=== PATIENT | female | born 1970 | race American Indian/Alaskan Native ===

== ENCOUNTER 2018-04-10 22:10 | Inpatient (IN) | payer MEDICAID, OTHER ==
[2018-04-10 22:31] VITALS: BMI 28.5
[2018-04-10] MEDS ORDERED: Sodium Chloride 0.9% 1,000 ML IV STA (22:38)
--- NOTE | 2018-04-10 22:51 | ED PDOC ---
Arrival/HPI - General Chief Complaint: Abdominal Pain Time Seen by Provider: 04/10/18 22:11 Historian: Patient - Critical Care Critical Care Minutes: 30 minutes - History of Present Illness Narrative History of Present Illness (Text): 04/10/18 22:35 48 year old female, whose past medical history includes substance abuse, diabetes, hepatitis C, presents to the emergency department complaining of abdominal cramps associated with nausea, vomiting, and diarrhea for the past couple of days. Patient denies any fever, chills, chest pain, shortness of breath, urinary symptoms, back pain, neck pain, headache, dizziness, or any other complaints. Time/Duration: Other (1-3 days) Symptom Onset: Gradual Symptom Course: Unchanged Activities at Onset: Light Context: Home Past Medical History - Provider Review Nursing Documentation Reviewed: Yes - Infectious Disease Hx of Infectious Diseases: None - Tetanus Immunization Tetanus Immunization: Unknown - Cardiac Hx Cardiac Disorders: No - Pulmonary Hx Respiratory Disorders: No - Neurological Hx Neurological Disorder: No - HEENT Hx HEENT Disorder: No - Renal Hx Renal Disorder: No - Endocrine/Metabolic Hx Endocrine Disorders: Yes Hx Diabetes Mellitus Type 2: Yes - Hematological/Oncological Hx Blood Disorders: No - Integumentary Hx Dermatological Disorder: Yes Other/Comment: left great toe infection - Musculoskeletal/Rheumatological Hx Musculoskeletal Disorders: No - Gastrointestinal Hx Gastrointestinal Disorders: No - Genitourinary/Gynecological Hx Genitourinary Disorders: No - Psychiatric Hx Psychophysiologic Disorder: No Hx Substance Use: Yes - Surgical History Other/Comment: Fibroid removed - Anesthesia Hx Anesthesia: Yes Hx Anesthesia Reactions: No Hx Malignant Hyperthermia: No Family/Social History - Physician Review Nursing Documentation Reviewed: Yes Family/Social History: No Known Family HX Smoking Status: Light Smoker < 10 Cigarettes Daily Hx Alcohol Use: No Hx Substance Use: Yes Substance used: heroin Allergies/Home Meds Allergies/Adverse Reactions: Allergies No Known Allergies Allergy (Verified 04/10/18 22:18) Home Medications: Home Meds Medication Instructions Recorded Confirmed Metformin HCl [Metformin] 1,000 mg PO BID 07/07/15 04/10/18 GlipiZIDE [Glipizide] 10 mg PO DAILY 08/26/16 04/10/18 Insulin Glargine, Recombina 0 unit SC ACHS 08/26/16 04/10/18 [Lantus] Review of Systems - Physician Review All systems were reviewed & negative as marked: Yes - Review of Systems Constitutional: absent: Fevers, Other (Chills) Respiratory: absent: SOB Cardiovascular: absent: Chest Pain Gastrointestinal: Abdominal Pain, Diarrhea, Nausea, Vomiting Genitourinary Female: absent: Dysuria, Frequency, Hematuria Musculoskeletal: absent: Back Pain, Neck Pain Neurological: absent: Headache, Dizziness Physical Exam Vital Signs Reviewed: Yes Vital Signs Temp Pulse Resp BP Pulse Ox 04/11/18 03:30 99.1 F 93 H 20 153/93 H 04/11/18 02:24 90 18 127/77 100 04/11/18 01:58 82 18 114/67 99 04/10/18 23:59 90 18 99 04/10/18 22:18 98.3 F 114 H 18 111/67 97 Temperature: Afebrile Blood Pressure: Normal Pulse: Tachycardic Respiratory Rate: Normal Appearance: Positive for: Well-Appearing, Non-Toxic, Comfortable Pain Distress: None Mental Status: Positive for: Alert and Oriented X 3 - Systems Exam Head: Present: Atraumatic, Normocephalic Pupils: Present: PERRL Extroacular Muscles: Present: EOMI Conjunctiva: Present: Normal Mouth: Present: Moist Mucous Membranes Neck: Present: Normal Range of Motion Respiratory/Chest: Present: Clear to Auscultation, Good Air Exchange. No: Respiratory Distress, Accessory Muscle Use Cardiovascular: Present: Regular Rate and Rhythm, Normal S1, S2. No: Murmurs Abdomen: Present: Normal Bowel Sounds. No: Tenderness, Distention, Peritoneal Signs Back: Present: Normal Inspection Upper Extremity: Present: Normal Inspection. No: Cyanosis, Edema Lower Extremity: Present: Normal Inspection. No: Edema Neurological: Present: GCS=15, CN II-XII Intact, Speech Normal, Motor Func Grossly Intact, Normal Sensory Function Skin: Present: Warm, Dry, Normal Color. No: Rashes Psychiatric: Present: Alert, Oriented x 3, Normal Insight, Normal Concentration Medical Decision Making ED Course and Treatment: 04/10/18 22:43 Impression: 48 year old female presents complaining abdominal cramping associated with nausea, vomiting, and diarrhea, for the past couple days. Plan: -- VBG -- CT Abd & Pelvis IV Contrast -- Chest X-Ray -- Humulin R, IV Fluids, Pepcid, Toradol, Vancomycin, Zofran, Zosyn -- Blood Culture, Urine Culture -- Urinalysis -- EKG -- Reassess and disposition Prior Visits: Notes and results from previous visits were reviewed. Progress Notes: 04/11/18 01:51 Code Sepsis called EXAM: CT Abdomen and Pelvis With Intravenous Contrast Dictated and Authenticated by: Cleopatra Duffy MD 04/11/2018 1:39 AM IMPRESSION: 1. Mild hepatomegaly. 2. The common bile duct is top normal in size measuring up to 6 mm. Main pancreatic duct is dilated measuring 5-6 mm. If available, correlate with prior imaging. Otherwise, consider further evaluation. 3. Enlarged lobular uterus with multiple masses, likely fibroids. 04/11/18 02:03 Case discussed with medical customer service representative and Dr. Pantoja who is aware and agrees with the plan. Accepts patient into hospitalist service. 04/11/18 03:01 EKG shows NSR at 92 BPM with non-specific ST/T wave changes. Interpreted by me. - Critical Care Critical Care Minutes: 30 minutes - Lab Interpretations Lab Results: 04/10/18 23:06 04/10/18 23:45 Lab Results 04/11/18 01:35: pO2 155 H, VBG pH 7.35, VBG pCO2 50.0, VBG HCO3 27.6, VBG Total CO2 29.1 H, VBG O2 Sat (Calc) 99.8 H, VBG Base Excess 1.2, VBG Potassium 2.9 L, Glucose 315 H, Lactate 3.4 H, FiO2 21.0, Sodium 134.0, Chloride 99.0, Venous Blood Potassium 2.9 L 04/11/18 00:14: POC Glucose (mg/dL) > 500 H* 04/10/18 23:45: Alcohol, Quantitative < 10 04/10/18 23:45: Sodium 133, Potassium 3.7, Chloride 89 L, Carbon Dioxide 31, Anion Gap 17, BUN 32 H, Creatinine 1.1, Est GFR ( Amer) > 60, Est GFR ( Non-Af Amer) 53, Random Glucose 602 H*, Calcium 8.5, Total Bilirubin 0.5, AST 35 , ALT 25, Alkaline Phosphatase 116, Total Protein 7.8, Albumin 3.9, Globulin 3.9 , Albumin/Globulin Ratio 1.0 L, Lipase 19 L 04/10/18 23:06: WBC 34.4 H*, RBC 4.12, Hgb 12.6, Hct 36.1, MCV 87.6, MCH 30.6, MCHC 34.9, RDW 14.1, Plt Count 435, MPV 10.2, Neutrophils % (Manual) 80 H, Band Neutrophils % 6 H, Lymphocytes % (Manual) 4 L, Monocytes % (Manual) 9 H, Metamyelocytes % 1, Platelet Evaluation Normal I have reviewed the lab results: Yes - RAD Interpretation Radiology Orders: 04/10/18 23:50 ABD & PELVIS IV CONTRAST ONLY [CT] Stat - Medication Orders Current Medication Orders: Doxycycline Hyclate (Doryx) 100 mg PO Q12 PETERSON PRN Reason: Protocol Sodium Chloride (Sodium Chloride 0.9%) 1,000 mls @ 100 mls/hr IV .Q10H PETERSON Vancomycin HCl (Vancomycin 1gm) 1 gm in 250 mls @ 167 mls/hr IVPB DAILY PETERSON PRN Reason: Protocol Piperacillin Sod/Tazobactam Sod (Zosyn 3.375 In Ns 100ml) 100 mls @ 200 mls/hr IVPB Q6 PETERSON PRN Reason: Protocol Stop: 04/18/18 06:01 Insulin Human Regular (Humulin R Low) 0 units SC ACHS PETERSON PRN Reason: Protocol Ondansetron HCl (Zofran Inj) 4 mg IVP Q4H PRN PRN Reason: Nausea/Vomiting Discontinued Medications Famotidine (Pepcid) 20 mg IVP STAT STA Stop: 04/10/18 22:39 Last Admin: 04/10/18 23:18 Dose: 20 mg IVP Administration Document 04/10/18 23:18 SS (Rec: 04/10/18 23:18 SS [id number]) Charges for Administration # of IVP Administrations 1 Sodium Chloride (Sodium Chloride 0.9%) 1,000 mls @ 999 mls/hr IV .Q1H1M STA Stop: 04/10/18 23:38 Last Admin: 04/10/18 23:19 Dose: 999 mls/hr eMAR Start Stop Document 04/10/18 23:19 SS (Rec: 04/10/18 23:19 SS [id number]) Intravenous Solution Start Date 04/10/18 Start Time 23:19 End Date 04/11/18 End time 00:19 Total Infusion Time 60 Sodium Chloride (Sodium Chloride 0.9%) 1,000 mls @ 999 mls/hr IV .Q1H1M STA Stop: 04/11/18 01:09 Last Admin: 04/11/18 00:36 Dose: 999 mls/hr eMAR Start Stop Document 04/11/18 00:36 SS (Rec: 04/11/18 00:36 SS [id number]) Intravenous Solution Start Date 04/11/18 Start Time 00:00 End Date 04/11/18 End time 01:00 Total Infusion Time 60 Piperacillin Sod/Tazobactam Sod (Zosyn 3.375 In Ns 100ml) 100 mls @ 200 mls/hr IV STAT STA PRN Reason: Protocol Stop: 04/11/18 01:24 Last Admin: 04/11/18 01:33 Dose: 200 mls/hr eMAR Start Stop Document 04/11/18 01:33 SS (Rec: 04/11/18 01:33 SS [id number]) Intravenous Solution Start Date 04/11/18 Start Time 01:33 Vancomycin HCl (Vancomycin 1gm) 1 gm in 250 mls @ 167 mls/hr IVPB STAT STA PRN Reason: Protocol Stop: 04/11/18 02:25 Last Admin: 04/11/18 02:33 Dose: 167 mls/hr eMAR Start Stop Document 04/11/18 02:33 SS (Rec: 04/11/18 02:33 SS [id number]) Intravenous Solution Start Date 04/11/18 Start Time 02:33 End Date 04/11/18 End time 04:03 Total Infusion Time 90 Insulin Human Regular (Humulin R) 10 units IVP STAT STA Stop: 04/11/18 00:11 Last Admin: 04/11/18 00:36 Dose: 10 u MAR Blood Glucose Document 04/11/18 00:36 SS (Rec: 04/11/18 00:36 SS [id number]) Blood Glucose Finger Stick Blood Glucose (70-120) 602 IVP Administration Document 04/11/18 00:36 SS (Rec: 04/11/18 00:36 SS [id number]) Charges for Administration # of IVP Administrations 1 Insulin Human Regular (Humulin R) 10 units SC STAT STA Stop: 04/11/18 00:13 Last Admin: 04/11/18 00:37 Dose: 10 units MAR Blood Glucose Document 04/11/18 00:37 SS (Rec: 04/11/18 00:37 SS [id number]) Blood Glucose Finger Stick Blood Glucose (70-120) 600 Subcutaneous Administrations Document 04/11/18 00:37 SS (Rec: 04/11/18 00:37 SS [id number]) Injection Site MAR Injection Site Left Arm Charges for Administration # of Subcutaneous Administrations 1 Ketorolac Tromethamine (Toradol) 30 mg IVP ONCE ONE Stop: 04/10/18 22:39 Last Admin: 04/10/18 23:18 Dose: 30 mg MAR Pain Assessment Document 04/10/18 23:18 SS (Rec: 04/10/18 23:19 SS [id number]) Pain Reassessment Is this a pain reassessment? No Presence of Pain Presence of Pain Yes Location Upper or Lower Lower Pain Location Body Site Abdomen IVP Administration Document 04/10/18 23:18 SS (Rec: 04/10/18 23:19 SS [id number]) Charges for Administration # of IVP Administrations 1 Ondansetron HCl (Zofran Inj) 4 mg IVP ONCE ONE Stop: 04/10/18 22:39 Last Admin: 04/10/18 23:18 Dose: 4 mg IVP Administration Document 04/10/18 23:18 SS (Rec: 04/10/18 23:18 SS [id number]) Charges for Administration # of IVP Administrations 1 - Scribe Statement The provider has reviewed the documentation as recorded by the Daryl Monge Provider Scribe Attestation: All medical record entries made by the Daryl were at my direction and personally dictated by me. I have reviewed the chart and agree that the record accurately reflects my personal performance of the history, physical exam, medical decision making, and the department course for this patient. I have also personally directed, reviewed, and agree with the discharge instructions and disposition. Disposition/Present on Arrival - Present on Arrival Any Indicators Present on Arrival: No History of DVT/PE: No History of Uncontrolled Diabetes: Yes Urinary Catheter: No History of Decub. Ulcer: No History Surgical Site Infection Following: None - Disposition Have Diagnosis and Disposition been Completed?: Yes Diagnosis: Sepsis, Abdominal pain, Uncontrolled diabetes mellitus Disposition: HOSPITALIZED Disposition Time: 02:05 Patient Plan: Admission Condition: STABLE
[2018-04-10 23:13] LABS: HEMOGLOBIN 12.6 g/dL (12.0-16.0); MEAN CELL VOLUME 87.6 fl (80.0-105.0); MEAN CORPUSCULAR HEMOGLOBIN 30.6 pg (25.0-35.0); MEAN CORPUSCULAR HGB CONC 34.9 g/dl (31.0-37.0); MEAN PLATELET VOLUME 10.2 fl (7.0-11.0); PLATELET COUNT 435 10^3/uL (120.0-450.0); RBC 4.12 10^6/uL (3.5-6.1); RED CELL DISTRIBUTION WIDTH 14.1 % (11.5-14.5)
[2018-04-10 23:16] LABS: WHITE BLOOD COUNT 34.4 10^3/ul (4.5-11.0)
[2018-04-11 00:08] LABS: ALBUMIN 3.9 g/dL (3.0-4.8); ALT/SGPT 25 U/L (7-56); AST/SGOT 35 U/L (14-36); BLOOD UREA NITROGEN 32 mg/dL (7-21); CALCIUM 8.5 mg/dL (8.4-10.5); GFR AFRICAN-AMERICAN > 60; GFR NON-AFRICAN AMERICAN 53; LIPASE 19 U/L (23-300)
[2018-04-11] MEDS ORDERED: Sodium Chloride 0.9% 1,000 ML IV STA (00:09)
[2018-04-11] MEDS ORDERED: Insulin Regular 1 UNITS/0.01 ML ML IVP STA (00:10)
[2018-04-11] MEDS ORDERED: Insulin Regular 1 UNITS/0.01 ML ML SC STA ×2 (00:11→00:12)
[2018-04-11] MEDS ORDERED: Iohexol 350 MG/100 ML VIAL ONE (00:24)
[2018-04-11] MEDS ORDERED: Piperacillin/Tazobact 3.375 gm 100 ML IV STA (00:55)
[2018-04-11] MEDS ORDERED: Vancomycin 1gm in NS 250ml 1 GM/250 ML BAG IVPB STA (00:56)
[2018-04-11 01:17] LABS: BAND 6 % (0-2); LYMPHOCYTE 4 % (22.0-35.0); NEUTROPHIL 80 % (50.0-70.0)
[2018-04-11 01:18] LABS: METAMYELOCYTE 1 %; MONOCYTE 9 % (1.0-6.0); PLATELET ESTIMATE NORMAL (NORMAL)
[2018-04-11 01:48] LABS: VENOUS BLOOD GAS BASE EXCESS 1.2 mmol/L (0.0-2.0); VENOUS BLOOD GAS PO2 155 mm/Hg (30-55); VENOUS BLOOD PH 7.35 (7.32-7.43)
--- NOTE | 2018-04-11 03:01 | CP.PCM.HP ---
<Shelley Bonilla - Last Filed: 04/11/18 07:01> History of Present Illness - History of Present Illness History of Present Illness: HISTORY & PHYSICAL NOTE FOR HOSPITALIST TEAM Shelley Bonilla PGY-1 CC: Severe lower abdominal pain 48 F with past medical history of heroin abuse, anxiety, DM2 on insulin, hepatitis C presented to ED with complaints of severe lower abdominal pain. Pt reported that she has had severe pain in her lower abdomen for the past month. She states the pain is "in the uterus" that is 10/10 severity and has been ongoing for the past month. She reports pain has progressively been worsening, until she decided to come to ER today. She also reports associated nausea, vomiting and diarrhea. She reports the pain is so severe that she is unable to sit to urinate due to pain. Pt reports that the last time she had snorted heroin was yesterday, however was unable to specify the amount. She reports that she had not snorted any heroin today, and only took 1 of her xanax this morning. Per prior records she has an extensive prior history of heroin abuse, with a history of snorting 10 bags per day. Pt is a poor historian and was not able to provide further history. Upon interview, she appeared in acute distress , and was unable to answer all questions appropriately. She was present with her boyfriend, who provided some history. Narcan was not administered in ED. Pt denies fevers, chills, chest pain, shortness of breath, numbness, tingling, hematuria. PMD: denies PMH: heroin abuse, anxiety, DM2 on insulin, hepatitis C, fibroids Allergies: NKDA PSH: myomectomy SH: cigarette, Famhx: Denies Meds: Xanax, metformin, lantus, atorvastatin, trazodone, hydroxyzine, glipizide Present on Admission - Present on Admission Any Indicators Present on Admission: No Review of Systems - Review of Systems All systems: reviewed and no additional remarkable complaints except (as per HPI , negative otherwise) Past Patient History - Infectious Disease Hx of Infectious Diseases: None - Tetanus Immunizations Tetanus Immunization: Unknown - Past Medical History & Family History Past Medical History?: Yes - Past Social History Smoking Status: Light Smoker < 10 Cigarettes Daily - CARDIAC Hx Cardiac Disorders: No - PULMONARY Hx Respiratory Disorders: No - NEUROLOGICAL Hx Neurological Disorder: No - HEENT Hx HEENT Problems: No - RENAL Hx Chronic Kidney Disease: No - ENDOCRINE/METABOLIC Hx Endocrine Disorders: Yes Hx Diabetes Mellitus Type 2: Yes - HEMATOLOGICAL/ONCOLOGICAL Hx Blood Disorders: No - INTEGUMENTARY Hx Dermatological Problems: Yes Other/Comment: left great toe infection - MUSCULOSKELETAL/RHEUMATOLOGICAL Hx Musculoskeletal Disorders: No - GASTROINTESTINAL Hx Gastrointestinal Disorders: No - GENITOURINARY/GYNECOLOGICAL Hx Genitourinary Disorders: No - PSYCHIATRIC Hx Psychophysiologic Disorder: No Hx Substance Use: Yes - SURGICAL HISTORY Other/Comment: Fibroid removed - ANESTHESIA Hx Anesthesia: Yes Hx Anesthesia Reactions: No Hx Malignant Hyperthermia: No Meds Allergies/Adverse Reactions: Allergies Allergy/AdvReac Type Severity Reaction Status Date / Time No Known Allergies Allergy Verified 04/10/18 22:18 Physical Exam - Constitutional Appears: In Acute Distress, Agitated - Head Exam Head Exam: ATRAUMATIC, NORMAL INSPECTION - Eye Exam Eye Exam: EOMI, Normal appearance, PERRL Pupil Exam: NORMAL ACCOMODATION - ENT Exam ENT Exam: Mucous Membranes Moist, Normal Exam - Neck Exam Neck exam: Positive for: Normal Inspection. Negative for: Meningismus Additional comments: (-) brudzinski - Respiratory Exam Respiratory Exam: Clear to Auscultation Bilateral, NORMAL BREATHING PATTERN - Cardiovascular Exam Cardiovascular Exam: REGULAR RHYTHM, +S1, +S2 - GI/Abdominal Exam GI & Abdominal Exam: Hypoactive Bowel Sounds, Soft, Tenderness (b/l lower quadrants). absent: Rebound, Rigid Additional comments: ertical incision noted midline on abdomen. Clean dry and intact - Extremities Exam Extremities exam: Positive for: normal inspection. Negative for: calf tenderness - Neurological Exam Neurological exam: Alert, Oriented x3 - Psychiatric Exam Psychiatric exam: Agitated, Anxious - Skin Skin Exam: Dry, Intact, Normal Color, Warm Results - Vital Signs Recent Vital Signs: Last Vital Signs Temp 98.3 F 04/10/18 22:18 Pulse 90 04/11/18 02:24 Resp 18 04/11/18 02:24 BP 127/77 04/11/18 02:24 Pulse Ox 100 04/11/18 02:24 - Labs Result Diagrams: 04/11/18 04:50 04/11/18 04:50 Assessment & Plan - Assessment and Plan (Free Text) Assessment: 48 F with past medical history of heroin abuse, anxiety, DM2 on insulin, hepatitis C admitted for sepsis. She presented to ED with severe lower abdominal pain. As per ED staff, she was not in acute distress when she came in. She was found to have a WBC of 34.4, glucose of 602, lactate 3.4. Code sepsis was called at 0151. ED had administered 2L Nacl, vancomycin and zosyn treatment. Upon interview, she was in acute distress, complaining of severe pain and a poor historian. Plan: Sepsis Pt arrived to ED with WBC count 34.4. Lactate 3.4. Glucose 602 Vitals have been stable. Code Sepsis called 2L NS, vancomycin, zosyn given in ED. Continue NS@100 Start Vancomycin 1gm Start Zosyn 3.375 F/U blood cultures/urine cultures ID Consult: Staci. f/u recs Abdominal pain, nausea, vomiting, diarrhea CT Abdomen: Mild hepatomegaly. Main pancreatic duct is dilated measuring 5-6 mm. If available, correlate with prior imaging. Enlarged lobular uterus with multiple masses, likely fibroids. F/u fecal leukocytes, Ova & Parasites F/u H. Pylori Ag Zofran 4mg IVP q4prn GI consult: Delvin trip follower Consulted, Dr. Hill NPO diet Diabetes Blood glucose on arrival: 602. Pt received 10u IV, 10u regular insulin in ER Hold home metformin, glucotrol Start insulin sliding scale Substance abuse Hx of heroin abuse. Monitor for signs of withdrawal F/u Urine drug screen HIV-1/2 AG/ABG Uterine fibroids CT Abdomen: Enlarged lobular uterus with multiple masses, likely fibroids. POLICY SERVICES REPRESENTATIVE consult: Liz GI/DVT ppx: Patient seen, examined and discussed with attending physician, Dr. Lucio <Deanne Pantoja - Last Filed: 04/11/18 10:33> Results - Vital Signs Recent Vital Signs: Last Vital Signs Temp 99.1 F 04/11/18 06:00 Pulse 93 H 04/11/18 06:00 Resp 20 04/11/18 06:00 BP 153/93 H 04/11/18 06:00 Pulse Ox 99 04/11/18 06:00 - Labs Result Diagrams: 04/11/18 04:50 04/11/18 04:50 Labs: Laboratory Results - last 24 hr 04/11/18 04/11/18 04/11/18 04:50 04:50 04:50 WBC 32.9 H* RBC 3.77 Hgb 11.5 L Hct 32.2 L MCV 85.4 MCH 30.5 MCHC 35.7 RDW 13.9 Plt Count 412 MPV 9.7 Gran % 85.0 H Lymph % (Auto) 4.8 L [place] % (Auto) 10.0 H Eos % (Auto) 0.1 L Baso % (Auto) 0.1 Gran # 27.96 H Lymph # (Auto) 1.6 [place] # (Auto) 3.3 H Eos # (Auto) 0.0 Baso # (Auto) 0.04 PT INR APTT pO2 134 H VBG pH 7.46 H VBG pCO2 44.0 VBG HCO3 31.3 H VBG Total CO2 32.7 H VBG O2 Sat (Calc) 99.6 H VBG Base Excess 6.6 H VBG Potassium 3.3 L Sodium 139 137.0 Chloride 99 103.0 Glucose 134 H Lactate 1.0 FiO2 21.0 Potassium 3.5 L Carbon Dioxide 30 Anion Gap 13 BUN 26 H Creatinine 0.9 Est GFR ( Amer) > 60 Est GFR (Non-Af Amer) > 60 Random Glucose 135 H Calcium 8.5 Phosphorus 2.0 L Magnesium 2.3 H Total Bilirubin 0.4 AST 27 ALT 28 Alkaline Phosphatase 117 Total Protein 7.8 Albumin 3.8 Globulin 4.0 Albumin/Globulin Ratio 0.9 L TSH 3rd Generation Venous Blood Potassium 3.3 L 04/11/18 04/11/18 07:30 07:30 WBC RBC Hgb Hct MCV MCH MCHC RDW Plt Count MPV Gran % Lymph % (Auto) [place] % (Auto) Eos % (Auto) Baso % (Auto) Gran # Lymph # (Auto) [place] # (Auto) Eos # (Auto) Baso # (Auto) PT 11.8 INR 1.03 APTT 28.4 pO2 VBG pH VBG pCO2 VBG HCO3 VBG Total CO2 VBG O2 Sat (Calc) VBG Base Excess VBG Potassium Sodium Chloride Glucose Lactate FiO2 Potassium Carbon Dioxide Anion Gap BUN Creatinine Est GFR ( Amer) Est GFR (Non-Af Amer) Random Glucose Calcium Phosphorus Magnesium Total Bilirubin AST ALT Alkaline Phosphatase Total Protein Albumin Globulin Albumin/Globulin Ratio TSH 3rd Generation 1.42 Venous Blood Potassium Attending/Attestation - Attestation I have personally seen and examined this patient.: Yes I have fully participated in the care of the patient.: Yes I have reviewed all pertinent clinical information: Yes Notes (Text): 04/11/18 10:24 Pt was seen with the resident by the bedside. LMP reported by pt was 2 weeks ago. On physical exam of the abdomen, a vertical scar was noted in the midline. According to the pt this is a stretch chava left over after her 3 pregnancies. Case was discussed,orders placed and plan of treatment was decided. Agree with orders and documentation.
[2018-04-11 05:13] LABS: VENOUS BLOOD GAS BASE EXCESS 6.6 mmol/L (0.0-2.0); VENOUS BLOOD GAS PO2 134 mm/Hg (30-55); VENOUS BLOOD PH 7.46 (7.32-7.43)
[2018-04-11 05:17] LABS: BASO # 0.04 K/mm3 (0.0-2.0); BASO % 0.1 % (0.0-3.0); EOS % 0.1 % (1.5-5.0); GRAN # 27.96 (1.4-6.5); HEMOGLOBIN 11.5 g/dL (12.0-16.0); LYMPH # 1.6 (1.2-3.4); LYMPH % 4.8 % (22.0-35.0); MEAN CELL VOLUME 85.4 fl (80.0-105.0); MEAN CORPUSCULAR HEMOGLOBIN 30.5 pg (25.0-35.0); MEAN CORPUSCULAR HGB CONC 35.7 g/dl (31.0-37.0); MEAN PLATELET VOLUME 9.7 fl (7.0-11.0); MONO # 3.3 (0.1-0.6); RBC 3.77 10^6/uL (3.5-6.1); RED CELL DISTRIBUTION WIDTH 13.9 % (11.5-14.5)
[2018-04-11 05:20] LABS: WHITE BLOOD COUNT 32.9 10^3/ul (4.5-11.0)
[2018-04-11 05:25] LABS: ALB/GLOB RATIO 0.9 (1.1-1.8); ALBUMIN 3.8 g/dL (3.0-4.8); ALT/SGPT 28 U/L (7-56); AST/SGOT 27 U/L (14-36); BLOOD UREA NITROGEN 26 mg/dL (7-21); CALCIUM 8.5 mg/dL (8.4-10.5); GFR AFRICAN-AMERICAN > 60; GFR NON-AFRICAN AMERICAN > 60
[2018-04-11] MEDS: Piperacillin/Tazobact 3.375 gm 100 ML IVPB SCH ×3 (06:22→17:40)
[2018-04-11] MEDS ORDERED: Potassium Chloride 20 mEq ER Tab PO ONE (06:58)
--- NOTE | 2018-04-11 07:32 | PCM.SEPTIC ---
Sepsis Progress Note - Reassessment Type Date of Evaluation: 04/11/18 Time of Evaluation: 07:25 Reassessment Type: Non-invasive reassessment - Non Invasive Reassessment Were the most recent vital sign reviewed: Yes Vital Sign (Latest): Temp Pulse Resp BP Pulse Ox 99.1 F 93 H 20 153/93 H 99 04/11/18 06:00 04/11/18 06:00 04/11/18 06:00 04/11/18 06:00 04/11/18 06:00 Cardiovascular: Yes: Regular Rate, Rhythm. No: Chest Non Tender, Edema, Murmur , Bradycardia, Tachycardia, Irregularly Irregular Respiratory: Yes: Normal Breath Sounds. No: Rales, Rhonchi, Stridor, Respiratory Distress Capillary Refill: Normal (Less than 2 sec) Pulses: Normal Radial, Normal Dorsalis Pedis, Normal Posterior Tibialis Skin: Normal Color, Warm, Dry - Invasive Reassessment (complete 2 of 4) Was a Central Venous Pressure Measurement obtained within 6 Hours after the presentation of septic shock: No Was a central venous oxygen measurement obtained within 6 hours after the presentation of septic shock: No Was a bedside cardiovascular ultrasound performed within 6 hours after the presentation of septic shock: No Was a passive leg raise performed or was a fluid challenge performed within 6 hrs of the initial fluid bolus: No Passive Leg Raise Result: Not Applicable Fluid Challenge performed: No
[2018-04-11 08:02] LABS: INR 1.03; PROTHROMBIN TIME 11.8 SECONDS (9.4-12.5)
[2018-04-11 08:04] LABS: PARTIAL THROMBOPLASTIN TIME 28.4 Seconds (25.1-36.5)
--- NOTE | 2018-04-11 08:04 | CP.PCM.CON ---
<Fransico Hopkins - Last Filed: 04/11/18 17:43> History of Present Illness - History of Present Illness History of Present Illness: Gastroenterology Consult note for Dr. Delvin Hopkins PGY2 Reason for consult: abdominal pain, nausea, vomiting Patient is a 48 F with a history of PID, DM, hep c (diagnosed a year ago, without treatment) and heroin abuse (last usage yesterday) who presents with complaints of suprapubic pain which began about a year ago. Patient states she has experienced this pain in the past on and off but as of late it has become more severe and constant. Describes the pain as an stabbing pain, 8/10, with radiation to the lower back. She states the pain is exacerbated during sexual intercourse. In order to relieve pain patient has attempted to take tylenol and advil which are both unsuccessful in relieving her pain. Patient states last menstrual period was a week ago and lasted 4 days. Patient states in the past two months she has noted increased bleeding for which she has to wear pampers, going through about two pampers a day during her menses. Patient's last f/u with her OBGY was a week prior for which she was found to have fibroids. As per patient her OBGYN recommended pain control with a pain management physician. No discussion on surgery for fibroids was had between patient and her OBGYN. PMH: PID, heroin abuse (former IVDA), anxiety, DM2, hepatitis C, fibroids Allergies: NKDA PSH: myomectomy Social History: cigarette half ppd, former IVDA, currently heroin abuse, occasional alcohol use Family history: Denies Review of Systems - Constitutional Constitutional: absent: Chills, Fever - EENT Eyes: absent: Change in Vision - Cardiovascular Cardiovascular: absent: Chest Pain, Dyspnea - Respiratory Respiratory: absent: Cough, Dyspnea - Gastrointestinal Gastrointestinal: Abdominal Pain (suprapubic), Diarrhea, Nausea, Vomiting - Genitourinary Genitourinary: absent: Dysuria - Reproductive: Female Reproductive:Female: Heavy Menses, Abnormal Vaginal Bleeding, Pelvic Pain - Menstruation Menstruation: Heavy Menses - Musculoskeletal Musculoskeletal: Back Pain - Neurological Neurological: absent: Dizziness, Numbness - Endocrine Endocrine: absent: Fatigue Past Patient History - Infectious Disease Hx of Infectious Diseases: None - Tetanus Immunizations Tetanus Immunization: Unknown - Past Medical History & Family History Past Medical History?: Yes - Past Social History Smoking Status: Light Smoker < 10 Cigarettes Daily - CARDIAC Hx Cardiac Disorders: No - PULMONARY Hx Respiratory Disorders: No - NEUROLOGICAL Hx Neurological Disorder: No - HEENT Hx HEENT Problems: No - RENAL Hx Chronic Kidney Disease: No - ENDOCRINE/METABOLIC Hx Endocrine Disorders: Yes Hx Diabetes Mellitus Type 2: Yes - HEMATOLOGICAL/ONCOLOGICAL Hx Blood Disorders: No - INTEGUMENTARY Hx Dermatological Problems: Yes Other/Comment: left great toe infection - MUSCULOSKELETAL/RHEUMATOLOGICAL Hx Musculoskeletal Disorders: No - GASTROINTESTINAL Hx Gastrointestinal Disorders: No - GENITOURINARY/GYNECOLOGICAL Hx Genitourinary Disorders: No - PSYCHIATRIC Hx Psychophysiologic Disorder: No Hx Substance Use: Yes - SURGICAL HISTORY Other/Comment: Fibroid removed - ANESTHESIA Hx Anesthesia: Yes Hx Anesthesia Reactions: No Hx Malignant Hyperthermia: No Meds Allergies/Adverse Reactions: Allergies Allergy/AdvReac Type Severity Reaction Status Date / Time No Known Allergies Allergy Verified 04/10/18 22:18 - Medications Medications: Current Medications Doxycycline Hyclate (Doryx) 100 mg PO Q12 [facility] PRN Reason: Protocol Heparin Sodium (Porcine) (Heparin) 5,000 units SC Q12 [facility] PRN Reason: Protocol Sodium Chloride (Sodium Chloride 0.9%) 1,000 mls @ 100 mls/hr IV .Q10H [facility] Vancomycin HCl (Vancomycin 1gm) 1 gm in 250 mls @ 167 mls/hr IVPB DAILY [facility] PRN Reason: Protocol Piperacillin Sod/Tazobactam Sod (Zosyn 3.375 In Ns 100ml) 100 mls @ 200 mls/hr IVPB Q6 [facility] PRN Reason: Protocol Stop: 04/18/18 06:01 Last Admin: 04/11/18 06:22 Dose: 200 mls/hr Insulin Human Regular (Humulin R Low) 0 units SC ACHS [facility] PRN Reason: Protocol Ketorolac Tromethamine (Toradol) 30 mg IVP Q6H PRN PRN Reason: Pain, moderate (4-7) Ondansetron HCl (Zofran Inj) 4 mg IVP Q4H PRN PRN Reason: Nausea/Vomiting Last Admin: 04/11/18 06:21 Dose: 4 mg Pantoprazole Sodium (Protonix Inj) 40 mg IVP DAILY [facility] Physical Exam - Constitutional Appears: In Acute Distress, Agitated - Head Exam Head Exam: ATRAUMATIC, NORMAL INSPECTION, NORMOCEPHALIC - Eye Exam Eye Exam: Normal appearance Pupil Exam: PERRL - ENT Exam ENT Exam: Mucous Membranes Moist, Normal Exam - Neck Exam Neck exam: Positive for: Normal Inspection - Respiratory Exam Respiratory Exam: Clear to Auscultation Bilateral, NORMAL BREATHING PATTERN - Cardiovascular Exam Cardiovascular Exam: REGULAR RHYTHM, +S1, +S2 - GI/Abdominal Exam GI & Abdominal Exam: Normal Bowel Sounds, Soft, Tenderness (suprapubic). absent : Diminished Bowel Sounds, Distended, Firm - Extremities Exam Extremities exam: Positive for: normal inspection - Back Exam Back exam: NORMAL INSPECTION - Neurological Exam Neurological exam: Alert, Oriented x3 - Psychiatric Exam Psychiatric exam: Normal Affect, Normal Mood - Skin Skin Exam: Intact, Normal Color, Warm Results - Vital Signs Recent Vital Signs: Last Vital Signs Temp 99.1 F 04/11/18 06:00 Pulse 93 H 04/11/18 06:00 Resp 20 04/11/18 06:00 BP 153/93 H 04/11/18 06:00 Pulse Ox 99 04/11/18 06:00 - Labs Result Diagrams: 04/11/18 04:50 04/11/18 04:50 Labs: Laboratory Results - last 24 hr 04/11/18 04/11/18 04/11/18 04:50 04:50 04:50 WBC 32.9 H* RBC 3.77 Hgb 11.5 L Hct 32.2 L MCV 85.4 MCH 30.5 MCHC 35.7 RDW 13.9 Plt Count 412 MPV 9.7 Gran % 85.0 H Lymph % (Auto) 4.8 L Carlton % (Auto) 10.0 H Eos % (Auto) 0.1 L Baso % (Auto) 0.1 Gran # 27.96 H Lymph # (Auto) 1.6 Carlton # (Auto) 3.3 H Eos # (Auto) 0.0 Baso # (Auto) 0.04 pO2 134 H VBG pH 7.46 H VBG pCO2 44.0 VBG HCO3 31.3 H VBG Total CO2 32.7 H VBG O2 Sat (Calc) 99.6 H VBG Base Excess 6.6 H VBG Potassium 3.3 L Sodium 139 137.0 Chloride 99 103.0 Glucose 134 H Lactate 1.0 FiO2 21.0 Potassium 3.5 L Carbon Dioxide 30 Anion Gap 13 BUN 26 H Creatinine 0.9 Est GFR ( Amer) > 60 Est GFR (Non-Af Amer) > 60 Random Glucose 135 H Calcium 8.5 Phosphorus 2.0 L Magnesium 2.3 H Total Bilirubin 0.4 AST 27 ALT 28 Alkaline Phosphatase 117 Total Protein 7.8 Albumin 3.8 Globulin 4.0 Albumin/Globulin Ratio 0.9 L Venous Blood Potassium 3.3 L Assessment & Plan - Assessment and Plan (Free Text) Assessment: Patient is a 48 F with a history of hep c (diagnosed a year ago, without treatment) and heroin abuse (last usage yesterday) who presents with complaints of suprapubic pain which began about a year ago. Plan: Lower abdominal pain with leukocytosis secondary to UTI vs. [employer] etiology (PID) -UA and Urine C&S -C. diff stool culture -Recommend Pelvic US -Recommend [employer] evaluation -Urine/Serum test could not be found Diarrhea -C. Diff with recent history of abx for past [employer] infection Pancreatic duct dilation -consider MRCP abdomen with and without contrast Hx of Hepatitis C -Not treated -Liver enzymes normal <Fina Hargrove V - Last Filed: 04/11/18 18:11> Meds - Medications Medications: Current Medications Doxycycline Hyclate (Doryx) 100 mg PO Q12 [facility] PRN Reason: Protocol Last Admin: 04/11/18 10:27 Dose: 100 mg Heparin Sodium (Porcine) (Heparin) 5,000 units SC Q12 [facility] PRN Reason: Protocol Last Admin: 04/11/18 10:27 Dose: 5,000 units Sodium Chloride (Sodium Chloride 0.9%) 1,000 mls @ 100 mls/hr IV .Q10H [facility] Last Admin: 04/11/18 08:06 Dose: 100 mls/hr Vancomycin HCl (Vancomycin 1gm) 1 gm in 250 mls @ 167 mls/hr IVPB DAILY [facility] PRN Reason: Protocol Last Admin: 04/11/18 10:27 Dose: 167 mls/hr Piperacillin Sod/Tazobactam Sod (Zosyn 3.375 In Ns 100ml) 100 mls @ 200 mls/hr IVPB Q6 [facility] PRN Reason: Protocol Stop: 04/18/18 06:01 Last Admin: 04/11/18 17:40 Dose: 200 mls/hr Insulin Human Regular (Humulin R Low) 0 units SC ACHS [facility] PRN Reason: Protocol Last Admin: 04/11/18 17:38 Dose: Not Given Ketorolac Tromethamine (Toradol) 30 mg IVP Q6H PRN PRN Reason: Pain, moderate (4-7) Last Admin: 04/11/18 15:28 Dose: 30 mg Lorazepam (Ativan) 1 mg IVP Q6H PRN; Protocol PRN Reason: Anxiety Methadone HCl (Methadone) 20 mg PO DAILY [facility] Ondansetron HCl (Zofran Inj) 4 mg IVP Q4H PRN PRN Reason: Nausea/Vomiting Last Admin: 04/11/18 06:21 Dose: 4 mg Pantoprazole Sodium (Protonix Inj) 40 mg IVP DAILY [facility] Results - Vital Signs Recent Vital Signs: Last Vital Signs Temp 97.1 F L 04/11/18 17:32 Pulse 93 H 04/11/18 17:32 Resp 21 04/11/18 17:32 BP 192/93 H 04/11/18 17:32 Pulse Ox 99 04/11/18 06:00 - Labs Result Diagrams: 04/11/18 04:50 04/11/18 04:50 Labs: Laboratory Results - last 24 hr 04/11/18 04/11/18 04/11/18 04:50 04:50 04:50 WBC 32.9 H* RBC 3.77 Hgb 11.5 L Hct 32.2 L MCV 85.4 MCH 30.5 MCHC 35.7 RDW 13.9 Plt Count 412 MPV 9.7 Gran % 85.0 H Lymph % (Auto) 4.8 L Carlton % (Auto) 10.0 H Eos % (Auto) 0.1 L Baso % (Auto) 0.1 Gran # 27.96 H Lymph # (Auto) 1.6 Carlton # (Auto) 3.3 H Eos # (Auto) 0.0 Baso # (Auto) 0.04 PT INR APTT pO2 134 H VBG pH 7.46 H VBG pCO2 44.0 VBG HCO3 31.3 H VBG Total CO2 32.7 H VBG O2 Sat (Calc) 99.6 H VBG Base Excess 6.6 H VBG Potassium 3.3 L Sodium 139 137.0 Chloride 99 103.0 Glucose 134 H Lactate 1.0 FiO2 21.0 Potassium 3.5 L Carbon Dioxide 30 Anion Gap 13 BUN 26 H Creatinine 0.9 Est GFR ( Amer) > 60 Est GFR (Non-Af Amer) > 60 POC Glucose (mg/dL) Random Glucose 135 H Hemoglobin A1c Calcium 8.5 Phosphorus 2.0 L Magnesium 2.3 H Total Bilirubin 0.4 AST 27 ALT 28 Alkaline Phosphatase 117 Total Protein 7.8 Albumin 3.8 Globulin 4.0 Albumin/Globulin Ratio 0.9 L Procalcitonin TSH 3rd Generation Venous Blood Potassium 3.3 L Urine Color Urine Appearance Urine pH Ur Specific [place] Urine Protein Urine Glucose (UA) Urine Ketones Urine Blood Urine Nitrate Urine Bilirubin Urine Urobilinogen Ur Leukocyte Esterase Urine RBC Urine WBC Ur Epithelial Cells Urine Bacteria Urine HCG, Qual Urine Opiates Screen Urine Methadone Screen Ur Barbiturates Screen Ur Phencyclidine Scrn Ur Amphetamines Screen U Benzodiazepines Scrn U Oth Cocaine Metabols U Cannabinoids Screen 04/11/18 04/11/18 04/11/18 04:50 07:30 07:30 WBC RBC Hgb Hct MCV MCH MCHC RDW Plt Count MPV Gran % Lymph % (Auto) Carlton % (Auto) Eos % (Auto) Baso % (Auto) Gran # Lymph # (Auto) Carlton # (Auto) Eos # (Auto) Baso # (Auto) PT 11.8 INR 1.03 APTT 28.4 pO2 VBG pH VBG pCO2 VBG HCO3 VBG Total CO2 VBG O2 Sat (Calc) VBG Base Excess VBG Potassium Sodium Chloride Glucose Lactate FiO2 Potassium Carbon Dioxide Anion Gap BUN Creatinine Est GFR ( Amer) Est GFR (Non-Af Amer) POC Glucose (mg/dL) Random Glucose Hemoglobin A1c 11.9 H D Calcium Phosphorus Magnesium Total Bilirubin AST ALT Alkaline Phosphatase Total Protein Albumin Globulin Albumin/Globulin Ratio Procalcitonin TSH 3rd Generation 1.42 Venous Blood Potassium Urine Color Urine Appearance Urine pH Ur Specific [place] Urine Protein Urine Glucose (UA) Urine Ketones Urine Blood Urine Nitrate Urine Bilirubin Urine Urobilinogen Ur Leukocyte Esterase Urine RBC Urine WBC Ur Epithelial Cells Urine Bacteria Urine HCG, Qual Urine Opiates Screen Urine Methadone Screen Ur Barbiturates Screen Ur Phencyclidine Scrn Ur Amphetamines Screen U Benzodiazepines Scrn U Oth Cocaine Metabols U Cannabinoids Screen 04/11/18 04/11/1818 07:30 11:35 14:00 WBC RBC Hgb Hct MCV MCH MCHC RDW Plt Count MPV Gran % Lymph % (Auto) Carlton % (Auto) Eos % (Auto) Baso % (Auto) Gran # Lymph # (Auto) Carlton # (Auto) Eos # (Auto) Baso # (Auto) PT INR APTT pO2 VBG pH VBG pCO2 VBG HCO3 VBG Total CO2 VBG O2 Sat (Calc) VBG Base Excess VBG Potassium Sodium Chloride Glucose Lactate FiO2 Potassium Carbon Dioxide Anion Gap BUN Creatinine Est GFR ( Amer) Est GFR (Non-Af Amer) POC Glucose (mg/dL) 185 H Random Glucose Hemoglobin A1c Calcium Phosphorus Magnesium Total Bilirubin AST ALT Alkaline Phosphatase Total Protein Albumin Globulin Albumin/Globulin Ratio Procalcitonin 1.75 H TSH 3rd Generation Venous Blood Potassium Urine Color Yellow Urine Appearance Clear Urine pH 7.5 Ur Specific [place] 1.020 Urine Protein 100 H Urine Glucose (UA) 500 H Urine Ketones 40 H Urine Blood Large H Urine Nitrate Negative Urine Bilirubin Negative Urine Urobilinogen 1.0 H Ur Leukocyte Esterase Negative Urine RBC 20 - 25 Urine WBC 1 - 3 Ur Epithelial Cells 4 - 5 Urine Bacteria Mod Urine HCG, Qual Negative Urine Opiates Screen Urine Methadone Screen Ur Barbiturates Screen Ur Phencyclidine Scrn Ur Amphetamines Screen U Benzodiazepines Scrn U Oth Cocaine Metabols U Cannabinoids Screen 04/11/18 14:00 WBC RBC Hgb Hct MCV MCH MCHC RDW Plt Count MPV Gran % Lymph % (Auto) Carlton % (Auto) Eos % (Auto) Baso % (Auto) Gran # Lymph # (Auto) Carlton # (Auto) Eos # (Auto) Baso # (Auto) PT INR APTT pO2 VBG pH VBG pCO2 VBG HCO3 VBG Total CO2 VBG O2 Sat (Calc) VBG Base Excess VBG Potassium Sodium Chloride Glucose Lactate FiO2 Potassium Carbon Dioxide Anion Gap BUN Creatinine Est GFR ( Amer) Est GFR (Non-Af Amer) POC Glucose (mg/dL) Random Glucose Hemoglobin A1c Calcium Phosphorus Magnesium Total Bilirubin AST ALT Alkaline Phosphatase Total Protein Albumin Globulin Albumin/Globulin Ratio Procalcitonin TSH 3rd Generation Venous Blood Potassium Urine Color Urine Appearance Urine pH Ur Specific [place] Urine Protein Urine Glucose (UA) Urine Ketones Urine Blood Urine Nitrate Urine Bilirubin Urine Urobilinogen Ur Leukocyte Esterase Urine RBC Urine WBC Ur Epithelial Cells Urine Bacteria Urine HCG, Qual Urine Opiates Screen Positive H Urine Methadone Screen Negative Ur Barbiturates Screen Negative Ur Phencyclidine Scrn Negative Ur Amphetamines Screen Negative U Benzodiazepines Scrn Negative U Oth Cocaine Metabols Positive H U Cannabinoids Screen Negative Attending/Attestation - Attestation I have personally seen and examined this patient.: Yes I have fully participated in the care of the patient.: Yes I have reviewed all pertinent clinical information: Yes Notes (Text): This is an addendum to GI consult report dictated by the Car Spotter.The patient was seen and evaluated earlier. Medical records, lab studies, imagings were reviewed. Last 24 hours events reviewed. Agreed with the above treatment plan as outlined in Car [facility]ter 's notes with the addition of the following The patient is mainly complaining of suprapubic pain Mild tenderness on deep Palpation in suprapubic area noticed Clinically rule out PAD other differential diagnosis include UTI and C. difficile. Patient was treated with antibiotics for PAD a few days ago We will request stool for C. difficile, follow-up cultures, IV antibiotics as per ID, [employer] follow-up 04/11/18 18:07
[2018-04-11] MEDS: Insulin Reg-LOW-Coverage SC SCH ×4 (08:05→22:42)
[2018-04-11] MEDS: Sodium Chloride 0.9% 1,000 ML IV SCH ×2 (08:06→19:14)
--- NOTE | 2018-04-11 08:54 | CT ---
Date of service: 04/11/2018 PROCEDURE: CT Abdomen and Pelvis with contrast HISTORY: Lower abdominal pain. COMPARISON: None TECHNIQUE: Contrast dose: 100 cc Omnipaque 350. Radiation dose: Total exam DLP = 458.40 mGy-cm. This CT exam was performed using one or more of the following dose reduction techniques: Automated exposure control, adjustment of the mA and/or kV according to patient size, and/or use of iterative reconstruction technique. FINDINGS: LOWER THORAX: Unremarkable. LIVER: Unremarkable. No gross lesion or ductal dilatation. GALLBLADDER AND BILE DUCTS: Unremarkable gallbladder. Distal common bile duct is dilated. PANCREAS: No focal or diffuse pancreatic abnormalities. Dilated pancreatic duct approximately 5 mm. SPLEEN: Unremarkable. ADRENALS: Unremarkable. No mass. KIDNEYS AND URETERS: Unremarkable. No hydronephrosis. No solid mass. VASCULATURE: Unremarkable. No aortic aneurysm. BOWEL: Unremarkable. No obstruction. No gross mural thickening. APPENDIX: Normal appendix. PERITONEUM: Unremarkable. No free fluid. No free air. LYMPH NODES: Unremarkable. No enlarged lymph nodes. BLADDER: Unremarkable. REPRODUCTIVE: Enlarged anteverted uterus with multiple masses consistent with fibroids at least 1 of which contains dense calcifications. BONES: No acute fracture. OTHER FINDINGS: None. IMPRESSION: No acute findings related to/accounting for the clinical presentation. Additional benign and/or incidental findings described above. Concordant results (preliminary interpretation) provided by [facility]. Procedure Completed: 01:06. Preliminary ([facility]) Report: Dictated and Authenticated: 01:39. Final Interpretation: 08:52. April 11, 2018.
--- NOTE | 2018-04-11 09:11 | RAD ---
Date of service: 04/11/2018 HISTORY: sepsis COMPARISON: No prior. FINDINGS: LUNGS: No active pulmonary disease. PLEURA: No significant pleural effusion identified, no pneumothorax apparent. CARDIOVASCULAR: Normal. OSSEOUS STRUCTURES: No significant abnormalities. VISUALIZED UPPER ABDOMEN: Normal. OTHER FINDINGS: None. IMPRESSION: No active disease.
[2018-04-11] MEDS: Vancomycin 1gm in NS 250ml 1 GM/250 ML BAG IVPB SCH (10:27)
[2018-04-11] MEDS ORDERED: cefTRIAXone 1 gm 1 GM/100 ML BAG IVPB STA (10:58)
--- NOTE | 2018-04-11 11:19 | CP.PCM.CON ---
<Shannan oLrd - Last Filed: 04/11/18 11:43> History of Present Illness - History of Present Illness History of Present Illness: PGY-3 Infectous disease cosnult note for Dr. Lane' s service 48 yo female with past medical history of heroin abuse, anxiety, DM2 on insulin , hepatitis C presented to ED with complaints of severe lower abdominal pain. Patient reported that pain has been intermittent for the past few months. However yesterday the pain return and she decided to seek medial attention. She describes the pain as sharp and is located in her lower abdomen radiating to the back. She also reports associated nausea, vomiting and diarrhea. She reports the increase pain with intercourse. Patient states that she noticed increased menstrual bleeding recent and she was recently diagnosed with uterine fibriods. Patient admitted to snorting heroin yesterday, with a history of snorting 10 bags per day. Patient also reports previous IVDA, denies IVDA for the past few years. Patient is a poor historian and noncompliant. Patient denies fevers, chills, chest pain, shortness of breath, numbness, tingling, hematuria. This morning patient is comfortable after pain medication. PMH: heroin abuse (former IVDA), anxiety, DM2, hepatitis C, fibroids Allergies: NKDA PSH: myomectomy Social History: cigarette half ppd, former IVDA, currently heroin abuse, occasional alcohol use Family history: Denies Review of Systems - Review of Systems All systems: reviewed and no additional remarkable complaints except Past Patient History - Infectious Disease Hx of Infectious Diseases: None - Tetanus Immunizations Tetanus Immunization: Unknown - Past Medical History & Family History Past Medical History?: Yes - Past Social History Smoking Status: Light Smoker < 10 Cigarettes Daily - CARDIAC Hx Cardiac Disorders: No - PULMONARY Hx Respiratory Disorders: No - NEUROLOGICAL Hx Neurological Disorder: No - HEENT Hx HEENT Problems: No - RENAL Hx Chronic Kidney Disease: No - ENDOCRINE/METABOLIC Hx Endocrine Disorders: Yes Hx Diabetes Mellitus Type 2: Yes - HEMATOLOGICAL/ONCOLOGICAL Hx Blood Disorders: No - INTEGUMENTARY Hx Dermatological Problems: Yes Other/Comment: left great toe infection - MUSCULOSKELETAL/RHEUMATOLOGICAL Hx Musculoskeletal Disorders: No - GASTROINTESTINAL Hx Gastrointestinal Disorders: No - GENITOURINARY/GYNECOLOGICAL Hx Genitourinary Disorders: No - PSYCHIATRIC Hx Psychophysiologic Disorder: No Hx Substance Use: Yes - SURGICAL HISTORY Other/Comment: Fibroid removed - ANESTHESIA Hx Anesthesia: Yes Hx Anesthesia Reactions: No Hx Malignant Hyperthermia: No Meds Allergies/Adverse Reactions: Allergies Allergy/AdvReac Type Severity Reaction Status Date / Time No Known Allergies Allergy Verified 04/10/18 22:18 - Medications Medications: Current Medications Doxycycline Hyclate (Doryx) 100 mg PO Q12 [facility] PRN Reason: Protocol Last Admin: 04/11/18 10:27 Dose: 100 mg Heparin Sodium (Porcine) (Heparin) 5,000 units SC Q12 [facility] PRN Reason: Protocol Last Admin: 04/11/18 10:27 Dose: 5,000 units Sodium Chloride (Sodium Chloride 0.9%) 1,000 mls @ 100 mls/hr IV .Q10H [facility] Last Admin: 04/11/18 08:06 Dose: 100 mls/hr Vancomycin HCl (Vancomycin 1gm) 1 gm in 250 mls @ 167 mls/hr IVPB DAILY [facility] PRN Reason: Protocol Last Admin: 04/11/18 10:27 Dose: 167 mls/hr Piperacillin Sod/Tazobactam Sod (Zosyn 3.375 In Ns 100ml) 100 mls @ 200 mls/hr IVPB Q6 [facility] PRN Reason: Protocol Stop: 04/18/18 06:01 Last Admin: 04/11/18 06:22 Dose: 200 mls/hr Ceftriaxone Sodium (Rocephin 1 Gram Ivpb) 1 gm in 100 mls @ 200 mls/hr IVPB STAT STA PRN Reason: Protocol Stop: 04/11/18 11:27 Insulin Human Regular (Humulin R Low) 0 units SC ACHS [facility] PRN Reason: Protocol Last Admin: 04/11/18 08:05 Dose: Not Given Ketorolac Tromethamine (Toradol) 30 mg IVP Q6H PRN PRN Reason: Pain, moderate (4-7) Lorazepam (Ativan) 1 mg IVP Q6H PRN; Protocol PRN Reason: Anxiety Methadone HCl (Methadone) 20 mg PO DAILY [facility] Ondansetron HCl (Zofran Inj) 4 mg IVP Q4H PRN PRN Reason: Nausea/Vomiting Last Admin: 04/11/18 06:21 Dose: 4 mg Pantoprazole Sodium (Protonix Inj) 40 mg IVP DAILY [facility] Last Admin: 04/11/18 10:26 Dose: 40 mg Physical Exam - Constitutional Appears: No Acute Distress - Head Exam Head Exam: ATRAUMATIC, NORMOCEPHALIC - Eye Exam Eye Exam: EOMI, Normal appearance - ENT Exam ENT Exam: Mucous Membranes Moist - Respiratory Exam Respiratory Exam: Clear to Auscultation Bilateral, NORMAL BREATHING PATTERN. absent: Rales, Rhonchi, Wheezes, Respiratory Distress, Stridor - Cardiovascular Exam Cardiovascular Exam: REGULAR RHYTHM, +S1, +S2. absent: Bradycardia, Tachycardia , Diastolic murmur, Systolic Murmur - GI/Abdominal Exam GI & Abdominal Exam: Normal Bowel Sounds. absent: Distended, Firm, Tenderness - Extremities Exam Extremities exam: Positive for: normal inspection. Negative for: pedal edema, tenderness - Back Exam Back exam: absent: CVA tenderness (L), CVA tenderness (R) - Neurological Exam Neurological exam: Alert, Oriented x3 - Skin Skin Exam: Dry, Intact, Normal Color, Warm Results - Vital Signs Recent Vital Signs: Last Vital Signs Temp 99.1 F 04/11/18 06:00 Pulse 93 H 04/11/18 06:00 Resp 20 04/11/18 06:00 BP 153/93 H 04/11/18 06:00 Pulse Ox 99 04/11/18 06:00 - Labs Result Diagrams: 04/11/18 04:50 04/11/18 04:50 Labs: Laboratory Results - last 24 hr 04/11/18 04/11/18 04/11/18 04:50 04:50 04:50 WBC 32.9 H* RBC 3.77 Hgb 11.5 L Hct 32.2 L MCV 85.4 MCH 30.5 MCHC 35.7 RDW 13.9 Plt Count 412 MPV 9.7 Gran % 85.0 H Lymph % (Auto) 4.8 L [place] % (Auto) 10.0 H Eos % (Auto) 0.1 L Baso % (Auto) 0.1 Gran # 27.96 H Lymph # (Auto) 1.6 [place] # (Auto) 3.3 H Eos # (Auto) 0.0 Baso # (Auto) 0.04 PT INR APTT pO2 134 H VBG pH 7.46 H VBG pCO2 44.0 VBG HCO3 31.3 H VBG Total CO2 32.7 H VBG O2 Sat (Calc) 99.6 H VBG Base Excess 6.6 H VBG Potassium 3.3 L Sodium 139 137.0 Chloride 99 103.0 Glucose 134 H Lactate 1.0 FiO2 21.0 Potassium 3.5 L Carbon Dioxide 30 Anion Gap 13 BUN 26 H Creatinine 0.9 Est GFR ( Amer) > 60 Est GFR (Non-Af Amer) > 60 Random Glucose 135 H Calcium 8.5 Phosphorus 2.0 L Magnesium 2.3 H Total Bilirubin 0.4 AST 27 ALT 28 Alkaline Phosphatase 117 Total Protein 7.8 Albumin 3.8 Globulin 4.0 Albumin/Globulin Ratio 0.9 L TSH 3rd Generation Venous Blood Potassium 3.3 L 04/11/18 04/11/18 07:30 07:30 WBC RBC Hgb Hct MCV MCH MCHC RDW Plt Count MPV Gran % Lymph % (Auto) [place] % (Auto) Eos % (Auto) Baso % (Auto) Gran # Lymph # (Auto) [place] # (Auto) Eos # (Auto) Baso # (Auto) PT 11.8 INR 1.03 APTT 28.4 pO2 VBG pH VBG pCO2 VBG HCO3 VBG Total CO2 VBG O2 Sat (Calc) VBG Base Excess VBG Potassium Sodium Chloride Glucose Lactate FiO2 Potassium Carbon Dioxide Anion Gap BUN Creatinine Est GFR ( Amer) Est GFR (Non-Af Amer) Random Glucose Calcium Phosphorus Magnesium Total Bilirubin AST ALT Alkaline Phosphatase Total Protein Albumin Globulin Albumin/Globulin Ratio TSH 3rd Generation 1.42 Venous Blood Potassium Assessment & Plan - Assessment and Plan (Free Text) Assessment: 48 yo female with past medical history of heroin abuse, anxiety, DM2 on insulin , hepatitis C presented to ED with complaints of severe lower abdominal pain secondary to possible uterine fibroids, rule out PID and pyelonephritis. Patient was afebrile with leukocytosis and tachycardia. CT of abd/pelvis showed mild hepatomegaly, pancreatic duct dilatation, and uterine fibroids. Continue antibiotics vancomycin, doxycyline and zosyn for possible pylonephritis or PID, will also give 1 dose ceftriaxone. Follow up UA, stool studies, HIV, chlamydia/ GC. Transvaginal US also ordered. Will follow up blood and urine cultures. case reviewed and discussed with attending. Dr. Lane <Jesus Lane - Last Filed: 04/11/18 16:54> Meds - Medications Medications: Current Medications Doxycycline Hyclate (Doryx) 100 mg PO Q12 [facility] PRN Reason: Protocol Last Admin: 04/11/18 10:27 Dose: 100 mg Heparin Sodium (Porcine) (Heparin) 5,000 units SC Q12 [facility] PRN Reason: Protocol Last Admin: 04/11/18 10:27 Dose: 5,000 units Sodium Chloride (Sodium Chloride 0.9%) 1,000 mls @ 100 mls/hr IV .Q10H [facility] Last Admin: 04/11/18 08:06 Dose: 100 mls/hr Vancomycin HCl (Vancomycin 1gm) 1 gm in 250 mls @ 167 mls/hr IVPB DAILY [facility] PRN Reason: Protocol Last Admin: 04/11/18 10:27 Dose: 167 mls/hr Piperacillin Sod/Tazobactam Sod (Zosyn 3.375 In Ns 100ml) 100 mls @ 200 mls/hr IVPB Q6 [facility] PRN Reason: Protocol Stop: 04/18/18 06:01 Last Admin: 04/11/18 13:25 Dose: 200 mls/hr Insulin Human Regular (Humulin R Low) 0 units SC ACHS [facility] PRN Reason: Protocol Last Admin: 04/11/18 11:56 Dose: Not Given Ketorolac Tromethamine (Toradol) 30 mg IVP Q6H PRN PRN Reason: Pain, moderate (4-7) Last Admin: 04/11/18 15:28 Dose: 30 mg Lorazepam (Ativan) 1 mg IVP Q6H PRN; Protocol PRN Reason: Anxiety Methadone HCl (Methadone) 20 mg PO DAILY [facility] Ondansetron HCl (Zofran Inj) 4 mg IVP Q4H PRN PRN Reason: Nausea/Vomiting Last Admin: 04/11/18 06:21 Dose: 4 mg Pantoprazole Sodium (Protonix Inj) 40 mg IVP DAILY [facility] Results - Vital Signs Recent Vital Signs: Last Vital Signs Temp 98.8 F 04/11/18 12:00 Pulse 83 04/11/18 12:00 Resp 21 04/11/18 12:00 BP 178/98 H 04/11/18 12:00 Pulse Ox 99 04/11/18 06:00 - Labs Result Diagrams: 04/11/18 04:50 04/11/18 04:50 Labs: Laboratory Results - last 24 hr 04/11/18 04/11/18 04/11/18 04:50 04:50 04:50 WBC 32.9 H* RBC 3.77 Hgb 11.5 L Hct 32.2 L MCV 85.4 MCH 30.5 MCHC 35.7 RDW 13.9 Plt Count 412 MPV 9.7 Gran % 85.0 H Lymph % (Auto) 4.8 L [place] % (Auto) 10.0 H Eos % (Auto) 0.1 L Baso % (Auto) 0.1 Gran # 27.96 H Lymph # (Auto) 1.6 [place] # (Auto) 3.3 H Eos # (Auto) 0.0 Baso # (Auto) 0.04 PT INR APTT pO2 134 H VBG pH 7.46 H VBG pCO2 44.0 VBG HCO3 31.3 H VBG Total CO2 32.7 H VBG O2 Sat (Calc) 99.6 H VBG Base Excess 6.6 H VBG Potassium 3.3 L Sodium 139 137.0 Chloride 99 103.0 Glucose 134 H Lactate 1.0 FiO2 21.0 Potassium 3.5 L Carbon Dioxide 30 Anion Gap 13 BUN 26 H Creatinine 0.9 Est GFR ( Amer) > 60 Est GFR (Non-Af Amer) > 60 POC Glucose (mg/dL) Random Glucose 135 H Hemoglobin A1c Calcium 8.5 Phosphorus 2.0 L Magnesium 2.3 H Total Bilirubin 0.4 AST 27 ALT 28 Alkaline Phosphatase 117 Total Protein 7.8 Albumin 3.8 Globulin 4.0 Albumin/Globulin Ratio 0.9 L TSH 3rd Generation Venous Blood Potassium 3.3 L Urine Color Urine Appearance Urine pH Ur Specific [place] Urine Protein Urine Glucose (UA) Urine Ketones Urine Blood Urine Nitrate Urine Bilirubin Urine Urobilinogen Ur Leukocyte Esterase Urine RBC Urine WBC Ur Epithelial Cells Urine Bacteria Urine HCG, Qual Urine Opiates Screen Urine Methadone Screen Ur Barbiturates Screen Ur Phencyclidine Scrn Ur Amphetamines Screen U Benzodiazepines Scrn U Oth Cocaine Metabols U Cannabinoids Screen 04/11/18 04/11/18 04/11/18 04:50 07:30 07:30 WBC RBC Hgb Hct MCV MCH MCHC RDW Plt Count MPV Gran % Lymph % (Auto) [place] % (Auto) Eos % (Auto) Baso % (Auto) Gran # Lymph # (Auto) [place] # (Auto) Eos # (Auto) Baso # (Auto) PT 11.8 INR 1.03 APTT 28.4 pO2 VBG pH VBG pCO2 VBG HCO3 VBG Total CO2 VBG O2 Sat (Calc) VBG Base Excess VBG Potassium Sodium Chloride Glucose Lactate FiO2 Potassium Carbon Dioxide Anion Gap BUN Creatinine Est GFR ( Amer) Est GFR (Non-Af Amer) POC Glucose (mg/dL) Random Glucose Hemoglobin A1c 11.9 H D Calcium Phosphorus Magnesium Total Bilirubin AST ALT Alkaline Phosphatase Total Protein Albumin Globulin Albumin/Globulin Ratio TSH 3rd Generation 1.42 Venous Blood Potassium Urine Color Urine Appearance Urine pH Ur Specific [place] Urine Protein Urine Glucose (UA) Urine Ketones Urine Blood Urine Nitrate Urine Bilirubin Urine Urobilinogen Ur Leukocyte Esterase Urine RBC Urine WBC Ur Epithelial Cells Urine Bacteria Urine HCG, Qual Urine Opiates Screen Urine Methadone Screen Ur Barbiturates Screen Ur Phencyclidine Scrn Ur Amphetamines Screen U Benzodiazepines Scrn U Oth Cocaine Metabols U Cannabinoids Screen 04/11/18 04/11/18 04/11/18 11:35 14:00 14:00 WBC RBC Hgb Hct MCV MCH MCHC RDW Plt Count MPV Gran % Lymph % (Auto) [place] % (Auto) Eos % (Auto) Baso % (Auto) Gran # Lymph # (Auto) [place] # (Auto) Eos # (Auto) Baso # (Auto) PT INR APTT pO2 VBG pH VBG pCO2 VBG HCO3 VBG Total CO2 VBG O2 Sat (Calc) VBG Base Excess VBG Potassium Sodium Chloride Glucose Lactate FiO2 Potassium Carbon Dioxide Anion Gap BUN Creatinine Est GFR ( Amer) Est GFR (Non-Af Amer) POC Glucose (mg/dL) 185 H Random Glucose Hemoglobin A1c Calcium Phosphorus Magnesium Total Bilirubin AST ALT Alkaline Phosphatase Total Protein Albumin Globulin Albumin/Globulin Ratio TSH 3rd Generation Venous Blood Potassium Urine Color Yellow Urine Appearance Clear Urine pH 7.5 Ur Specific [place] 1.020 Urine Protein 100 H Urine Glucose (UA) 500 H Urine Ketones 40 H Urine Blood Large H Urine Nitrate Negative Urine Bilirubin Negative Urine Urobilinogen 1.0 H Ur Leukocyte Esterase Negative Urine RBC 20 - 25 Urine WBC 1 - 3 Ur Epithelial Cells 4 - 5 Urine Bacteria Mod Urine HCG, Qual Negative Urine Opiates Screen Positive H Urine Methadone Screen Negative Ur Barbiturates Screen Negative Ur Phencyclidine Scrn Negative Ur Amphetamines Screen Negative U Benzodiazepines Scrn Negative U Oth Cocaine Metabols Positive H U Cannabinoids Screen Negative Assessment & Plan - Assessment and Plan (Free Text) Assessment: Infectious Diseases Attending Physician Addendum Patient seen and examined, discussed with manager of medical. I have reviewed the pertinent clinical information for the patient, including history of present illness, medical, personal and social histories, lab results and imaging findings. I agree with the above findings, assessment and plan. In addition, will give a dose of IV Rocephin, continue Zosyn and add Doxycycline for this patient with possible pyelonephritis, R/O pelvic inflammatory disease. Follow up blood and urine cx, check urine GC, check HIV test. Will monitor clinically.
[2018-04-11 14:20] LABS: PH,URINE 7.5 (4.7-8.0); URINE BILIRUBIN NEGATIVE (NEGATIVE); URINE BLOOD LARGE (NEGATIVE); URINE GLUCOSE (UA) 500 mg/dL (NEGATIVE); URINE LEUKOCYTE ESTERASE NEGATIVE Leu/uL (NEGATIVE); URINE PROTEIN 100 mg/dL (<30 mg/dL)
[2018-04-11 14:28] LABS: URINE APPEARANCE CLEAR (CLEAR); URINE COLOR YELLOW (YELLOW)
[2018-04-11 14:30] LABS: HCG,QUALITATIVE URINE NEGATIVE (NEGATIVE); URINE BACTERIA MOD (NEG); URINE RBC 20 - 25 /hpf (0-2)
[2018-04-11 14:42] LABS: BARBITURATES, UR NEGATIVE (NEGATIVE); BENZODIAZEPINES, UR NEGATIVE (NEGATIVE); OPIATES, UR POSITIVE (NEGATIVE); PHENCYCLIDINE, UR NEGATIVE (NEGATIVE)
--- NOTE | 2018-04-11 15:17 | CARD ---
APPROVED REPORT Date of service: 04/11/2018 EKG Measurement Heart [id number] <Conclusion> Normal sinus rhythm Possible Left atrial enlargement Borderline ECG
--- NOTE | 2018-04-11 15:50 | CP.PCM.CON ---
History of Present Illness - History of Present Illness History of Present Illness: 48yo female with DM, uterine fibroids, Hep C, substance abuse issues presented [place] [facility] [place] with c/o 1 mo h/o worsening pelvic and abdominal pain. Pt reports long h /o uterine fibroids. Prior myomectomy done 4-5years ago as per patient. Pt also c/o N/V. Past Patient History - Infectious Disease Hx of Infectious Diseases: None - Tetanus Immunizations Tetanus Immunization: Unknown - Past Medical History & Family History Past Medical History?: Yes - Past Social History Smoking Status: Light Smoker < 10 Cigarettes Daily - CARDIAC Hx Cardiac Disorders: No - PULMONARY Hx Respiratory Disorders: No - NEUROLOGICAL Hx Neurological Disorder: No - HEENT Hx HEENT Problems: No - RENAL Hx Chronic Kidney Disease: No - ENDOCRINE/METABOLIC Hx Endocrine Disorders: Yes Hx Diabetes Mellitus Type 2: Yes - HEMATOLOGICAL/ONCOLOGICAL Hx Blood Disorders: No - INTEGUMENTARY Hx Dermatological Problems: Yes Other/Comment: left great toe infection - MUSCULOSKELETAL/RHEUMATOLOGICAL Hx Musculoskeletal Disorders: No - GASTROINTESTINAL Hx Gastrointestinal Disorders: No - GENITOURINARY/GYNECOLOGICAL Hx Genitourinary Disorders: No - PSYCHIATRIC Hx Psychophysiologic Disorder: No Hx Substance Use: Yes - SURGICAL HISTORY Other/Comment: Fibroid removed - ANESTHESIA Hx Anesthesia: Yes Hx Anesthesia Reactions: No Hx Malignant Hyperthermia: No Meds Allergies/Adverse Reactions: Allergies Allergy/AdvReac Type Severity Reaction Status Date / Time No Known Allergies Allergy Verified 04/10/18 22:18 - Medications Medications: Current Medications Doxycycline Hyclate (Doryx) 100 mg PO Q12 [facility] PRN Reason: Protocol Last Admin: 04/11/18 10:27 Dose: 100 mg Heparin Sodium (Porcine) (Heparin) 5,000 units SC Q12 [facility] PRN Reason: Protocol Last Admin: 04/11/18 10:27 Dose: 5,000 units Sodium Chloride (Sodium Chloride 0.9%) 1,000 mls @ 100 mls/hr IV .Q10H [facility] Last Admin: 04/11/18 08:06 Dose: 100 mls/hr Vancomycin HCl (Vancomycin 1gm) 1 gm in 250 mls @ 167 mls/hr IVPB DAILY [facility] PRN Reason: Protocol Last Admin: 04/11/18 10:27 Dose: 167 mls/hr Piperacillin Sod/Tazobactam Sod (Zosyn 3.375 In Ns 100ml) 100 mls @ 200 mls/hr IVPB Q6 [facility] PRN Reason: Protocol Stop: 04/18/18 06:01 Last Admin: 04/11/18 13:25 Dose: 200 mls/hr Insulin Human Regular (Humulin R Low) 0 units SC ACHS [facility] PRN Reason: Protocol Last Admin: 04/11/18 11:56 Dose: Not Given Ketorolac Tromethamine (Toradol) 30 mg IVP Q6H PRN PRN Reason: Pain, moderate (4-7) Last Admin: 04/11/18 15:28 Dose: 30 mg Lorazepam (Ativan) 1 mg IVP Q6H PRN; Protocol PRN Reason: Anxiety Methadone HCl (Methadone) 20 mg PO DAILY [facility] Ondansetron HCl (Zofran Inj) 4 mg IVP Q4H PRN PRN Reason: Nausea/Vomiting Last Admin: 04/11/18 06:21 Dose: 4 mg Pantoprazole Sodium (Protonix Inj) 40 mg IVP DAILY [facility] Physical Exam - Constitutional Appears: Non-toxic - Head Exam Head Exam: ATRAUMATIC - Eye Exam Eye Exam: Normal appearance, PERRL - ENT Exam ENT Exam: Mucous Membranes Moist - GI/Abdominal Exam Additional comments: soft, nondistended, +diffuse tenderness in lower abdomen. No rebound, no gaurding. Results - Vital Signs Recent Vital Signs: Last Vital Signs Temp 98.8 F 04/11/18 12:00 Pulse 83 04/11/18 12:00 Resp 21 04/11/18 12:00 BP 178/98 H 04/11/18 12:00 Pulse Ox 99 04/11/18 06:00 - Labs Result Diagrams: 04/11/18 04:50 04/11/18 04:50 Labs: Laboratory Results - last 24 hr 04/11/18 04/11/18 04/11/18 04:50 04:50 04:50 WBC 32.9 H* RBC 3.77 Hgb 11.5 L Hct 32.2 L MCV 85.4 MCH 30.5 MCHC 35.7 RDW 13.9 Plt Count 412 MPV 9.7 Gran % 85.0 H Lymph % (Auto) 4.8 L [place] % (Auto) 10.0 H Eos % (Auto) 0.1 L Baso % (Auto) 0.1 Gran # 27.96 H Lymph # (Auto) 1.6 [place] # (Auto) 3.3 H Eos # (Auto) 0.0 Baso # (Auto) 0.04 PT INR APTT pO2 134 H VBG pH 7.46 H VBG pCO2 44.0 VBG HCO3 31.3 H VBG Total CO2 32.7 H VBG O2 Sat (Calc) 99.6 H VBG Base Excess 6.6 H VBG Potassium 3.3 L Sodium 139 137.0 Chloride 99 103.0 Glucose 134 H Lactate 1.0 FiO2 21.0 Potassium 3.5 L Carbon Dioxide 30 Anion Gap 13 BUN 26 H Creatinine 0.9 Est GFR ( Amer) > 60 Est GFR (Non-Af Amer) > 60 POC Glucose (mg/dL) Random Glucose 135 H Hemoglobin A1c Calcium 8.5 Phosphorus 2.0 L Magnesium 2.3 H Total Bilirubin 0.4 AST 27 ALT 28 Alkaline Phosphatase 117 Total Protein 7.8 Albumin 3.8 Globulin 4.0 Albumin/Globulin Ratio 0.9 L TSH 3rd Generation Venous Blood Potassium 3.3 L Urine Color Urine Appearance Urine pH Ur Specific [place] Urine Protein Urine Glucose (UA) Urine Ketones Urine Blood Urine Nitrate Urine Bilirubin Urine Urobilinogen Ur Leukocyte Esterase Urine RBC Urine WBC Ur Epithelial Cells Urine Bacteria Urine HCG, Qual Urine Opiates Screen Urine Methadone Screen Ur Barbiturates Screen Ur Phencyclidine Scrn Ur Amphetamines Screen U Benzodiazepines Scrn U Oth Cocaine Metabols U Cannabinoids Screen 04/11/18 04/11/18 04/11/18 04:50 07:30 07:30 WBC RBC Hgb Hct MCV MCH MCHC RDW Plt Count MPV Gran % Lymph % (Auto) [place] % (Auto) Eos % (Auto) Baso % (Auto) Gran # Lymph # (Auto) [place] # (Auto) Eos # (Auto) Baso # (Auto) PT 11.8 INR 1.03 APTT 28.4 pO2 VBG pH VBG pCO2 VBG HCO3 VBG Total CO2 VBG O2 Sat (Calc) VBG Base Excess VBG Potassium Sodium Chloride Glucose Lactate FiO2 Potassium Carbon Dioxide Anion Gap BUN Creatinine Est GFR ( Amer) Est GFR (Non-Af Amer) POC Glucose (mg/dL) Random Glucose Hemoglobin A1c 11.9 H D Calcium Phosphorus Magnesium Total Bilirubin AST ALT Alkaline Phosphatase Total Protein Albumin Globulin Albumin/Globulin Ratio TSH 3rd Generation 1.42 Venous Blood Potassium Urine Color Urine Appearance Urine pH Ur Specific [place] Urine Protein Urine Glucose (UA) Urine Ketones Urine Blood Urine Nitrate Urine Bilirubin Urine Urobilinogen Ur Leukocyte Esterase Urine RBC Urine WBC Ur Epithelial Cells Urine Bacteria Urine HCG, Qual Urine Opiates Screen Urine Methadone Screen Ur Barbiturates Screen Ur Phencyclidine Scrn Ur Amphetamines Screen U Benzodiazepines Scrn U Oth Cocaine Metabols U Cannabinoids Screen 04/11/18 04/11/18 04/11/18 11:35 14:00 14:00 WBC RBC Hgb Hct MCV MCH MCHC RDW Plt Count MPV Gran % Lymph % (Auto) [place] % (Auto) Eos % (Auto) Baso % (Auto) Gran # Lymph # (Auto) [place] # (Auto) Eos # (Auto) Baso # (Auto) PT INR APTT pO2 VBG pH VBG pCO2 VBG HCO3 VBG Total CO2 VBG O2 Sat (Calc) VBG Base Excess VBG Potassium Sodium Chloride Glucose Lactate FiO2 Potassium Carbon Dioxide Anion Gap BUN Creatinine Est GFR ( Amer) Est GFR (Non-Af Amer) POC Glucose (mg/dL) 185 H Random Glucose Hemoglobin A1c Calcium Phosphorus Magnesium Total Bilirubin AST ALT Alkaline Phosphatase Total Protein Albumin Globulin Albumin/Globulin Ratio TSH 3rd Generation Venous Blood Potassium Urine Color Yellow Urine Appearance Clear Urine pH 7.5 Ur Specific [place] 1.020 Urine Protein 100 H Urine Glucose (UA) 500 H Urine Ketones 40 H Urine Blood Large H Urine Nitrate Negative Urine Bilirubin Negative Urine Urobilinogen 1.0 H Ur Leukocyte Esterase Negative Urine RBC 20 - 25 Urine WBC 1 - 3 Ur Epithelial Cells 4 - 5 Urine Bacteria Mod Urine HCG, Qual Negative Urine Opiates Screen Positive H Urine Methadone Screen Negative Ur Barbiturates Screen Negative Ur Phencyclidine Scrn Negative Ur Amphetamines Screen Negative U Benzodiazepines Scrn Negative U Oth Cocaine Metabols Positive H U Cannabinoids Screen Negative - Imaging and Cardiology CT scan - pelvis Status: Image reviewed by me, Report reviewed by me Assessment & Plan - Assessment and Plan (Free Text) Assessment: Abdominal/Pelvic pain, uterine fibroid, Significantly elevated WBC, multiple medical problems. -- uterine fibroids unlikely to cause such a sig elevation of WBC count. Higher on Diff Dx would include PID, UTI/Pyeloneph, possible GI source. Plan: I discussed all findings with patient and discussed possible causes of symptoms. I recommended to patient to continue antibiotic regimen and continue observation. Pt will possibly need surgery at some point for uterine fibroids, but her current infection should be treated first and other medical issues stabilized. After current treatment, this can be evaluated and treated as out- pt. All patient questions answered. Pt is going to have ultrasound completed today. - Date & Time Date: 04/11/18 Time: 15:55
--- NOTE | 2018-04-11 17:12 | US ---
Date of service: 04/11/2018 HISTORY: Abdominal pain, fibroids COMPARISON: Correlation made with concurrent transvaginal TECHNIQUE: Transabdominal sonographic evaluation of the pelvis performed. FINDINGS: UTERUS: The uterus measures approximately 10.7 x 4.5 x 7.0 cm. Cm. . The uterus exhibits lobular contour consistent with multiple fibroids the largest measuring approximate 2.6 x 2.6 x 3.5 cm Note is made of a small calcification within the fundal region that measures approximately 1.6 x 0.75 x 0.765 cm and probably represents a calcified uterine fibroid. ENDOMETRIUM: Measures approximately 4.8 mm in diameter. Unremarkable. CERVIX: No cervical abnormality identified. RIGHT OVARY: Right ovary not visualized on transabdominal study though was seen on transvaginal exam. Right ovary measures approximately 2.3 x 1.5 x 2.8 cm and exhibits arterial flow. There is a septated cyst right ovary measuring 1.6 x 1.3 x 4.8 cm. LEFT OVARY: Left ovary not visualized. FREE FLUID: No significant free fluid noted. OTHER FINDINGS: None. IMPRESSION: Findings consistent with multiple uterine fibroids one of which exhibits calcification. Right ovary is not seen on transabdominal exam delays visualized on concurrent transvaginal pelvic ultrasound Small right ovarian cyst. Left ovary is not visualized.
--- NOTE | 2018-04-11 17:15 | US ---
Date of service: 04/11/2018 HISTORY: Lower abdominal pain; hx of fibroids COMPARISON: Correlation made with concurrent transabdominal study TECHNIQUE: Transvaginal sonographic evaluation of the pelvis performed FINDINGS: UTERUS: Uterus measures approximate 10.7 x 4.5 x 6.9 cm. Normal in size and appearance. Multiple uterine fibroids are present in addition, there is a small elliptical shaped calcification in the fundal region consistent with calcified fibroid. ENDOMETRIUM: Measures 6.9 mm in diameter. Unremarkable. CERVIX: No cervical abnormality identified. RIGHT OVARY: Right ovary measures approximately 2.3 x 1.5 x 2.8 cm and exhibits arterial flow. There is a septated cyst which measures approximately 1.6 x 1.3 x 1.8 cm. LEFT OVARY: M left ovary not visualized. FREE FLUID: No significant free fluid noted. OTHER FINDINGS: None. IMPRESSION: Multiple uterine fibroids one of which exhibits calcification. Septated cyst right ovary.
[2018-04-12] MEDS: Piperacillin/Tazobact 3.375 gm 100 ML IVPB SCH ×4 (01:10→18:19)
[2018-04-12] MEDS: Sodium Chloride 0.9% 1,000 ML IV SCH ×2 (06:00→10:32)
[2018-04-12 06:19] LABS: BASO # 0.07 K/mm3 (0.0-2.0); BASO % 0.3 % (0.0-3.0); EOS % 0.1 % (1.5-5.0); GRAN # 23.52 (1.4-6.5); HEMOGLOBIN 11.5 g/dL (12.0-16.0); LYMPH # 2.4 (1.2-3.4); LYMPH % 8.6 % (22.0-35.0); MEAN CELL VOLUME 86.3 fl (80.0-105.0); MEAN CORPUSCULAR HEMOGLOBIN 29.2 pg (25.0-35.0); MEAN CORPUSCULAR HGB CONC 33.8 g/dl (31.0-37.0); RBC 3.94 10^6/uL (3.5-6.1); RED CELL DISTRIBUTION WIDTH 13.8 % (11.5-14.5)
[2018-04-12 06:44] LABS: ALB/GLOB RATIO 0.9 (1.1-1.8); ALBUMIN 3.8 g/dL (3.0-4.8); ALT/SGPT 31 U/L (7-56); AST/SGOT 38 U/L (14-36); BLOOD UREA NITROGEN 16 mg/dL (7-21); CALCIUM 8.4 mg/dL (8.4-10.5); GFR AFRICAN-AMERICAN > 60; GFR NON-AFRICAN AMERICAN > 60; HDL CHOLESTEROL 23 mg/dL (29-60)
[2018-04-12 06:48] LABS: LDL CHOLESTEROL 90 mg/dL (0-129)
[2018-04-12] MEDS ORDERED: Pantoprazole 40 mg EC Tab PO SCH (07:30)
[2018-04-12] MEDS: Insulin Reg-LOW-Coverage SC SCH ×4 (07:51→22:51)
[2018-04-12] MEDS: Vancomycin 1gm in NS 250ml 1 GM/250 ML BAG IVPB SCH (09:44)
[2018-04-12] MEDS ORDERED: Potassium Chloride 20 mEq ER Tab PO STA (11:43)
[2018-04-12] MEDS: Potassium & Sodium Phosphate PO SCH ×2 (12:24→18:20)
--- NOTE | 2018-04-12 12:35 | CP.PCM.PN ---
<Shannan Lord - Last Filed: 04/12/18 13:09> Subjective - Date & Time of Evaluation Date of Evaluation: 04/12/18 Time of Evaluation: 09:00 - Subjective Subjective: PGY-3 Infectious disease progress note for Dr. Lane's service Patient seen and examined at bedside, no acute distress. Patient states that she continues to have pain but pain medication is helping. Nurse reports emesis overnight. This morning patient reports nausea but no vomiting. Patient reports that she was prescribed antibiotics however does not recall if she completed the course. She denies fever, chills, Dysuria. Objective - Vital Signs/Intake and Output Vital Signs (last 24 hours): Temp Pulse Resp BP Pulse Ox 98.8 F 99 H 18 163/94 H 99 04/12/18 11:51 04/12/18 11:51 04/12/18 11:51 04/12/18 11:51 04/12/18 06:00 Intake and Output: 04/12/18 04/12/18 06:59 18:59 Intake Total 0 1200 Output Total 400 Balance -400 1200 - Medications Medications: Current Medications Clonidine HCl (Catapres) 0.1 mg PO Q8H PRN PRN Reason: Systolic Blood Pressure Doxycycline Hyclate (Doryx) 100 mg PO Q12 [facility] PRN Reason: Protocol Last Admin: 04/12/18 09:43 Dose: 100 mg Heparin Sodium (Porcine) (Heparin) 5,000 units SC Q12 [facility] PRN Reason: Protocol Last Admin: 04/12/18 09:43 Dose: 5,000 units Sodium Chloride (Sodium Chloride 0.9%) 1,000 mls @ 100 mls/hr IV .Q10H [facility] Last Admin: 04/12/18 10:32 Dose: Not Given Piperacillin Sod/Tazobactam Sod (Zosyn 3.375 In Ns 100ml) 100 mls @ 200 mls/hr IVPB Q6 [facility] PRN Reason: Protocol Stop: 04/18/18 06:01 Last Admin: 04/12/18 06:00 Dose: 200 mls/hr Insulin Human Regular (Humulin R Low) 0 units SC ACHS [facility] PRN Reason: Protocol Last Admin: 04/12/18 07:51 Dose: Not Given Ketorolac Tromethamine (Toradol) 30 mg IVP Q6H PRN PRN Reason: Pain, moderate (4-7) Last Admin: 04/11/18 22:49 Dose: 30 mg Lorazepam (Ativan) 1 mg IVP Q6H PRN; Protocol PRN Reason: Anxiety Last Admin: 04/12/18 03:21 Dose: 1 mg Methadone HCl (Methadone) 10 mg PO DAILY [facility] Ondansetron HCl (Zofran Inj) 4 mg IVP Q4H PRN PRN Reason: Nausea/Vomiting Last Admin: 04/12/18 03:22 Dose: 4 mg Pantoprazole Sodium (Protonix Inj) 40 mg IVP DAILY [facility] Last Admin: 04/12/18 09:44 Dose: 40 mg Potassium Phos/Sodium Phos (Neutra-Phos) 1 pkt PO BID [facility] - Labs Labs: 04/12/18 05:20 04/12/18 05:20 PT 11.8 SECONDS (9.4-12.5) 04/11/18 07:30 INR 1.03 04/11/18 07:30 APTT 28.4 Seconds (25.1-36.5) 04/11/18 07:30 - Constitutional Appears: No Acute Distress - Head Exam Head Exam: ATRAUMATIC, NORMAL INSPECTION, NORMOCEPHALIC - Eye Exam Eye Exam: Normal appearance - ENT Exam ENT Exam: Mucous Membranes Moist - Respiratory Exam Respiratory Exam: Clear to Ausculation Bilateral, NORMAL BREATHING PATTERN. absent: Rhonchi, Wheezes, Respiratory Distress - Cardiovascular Exam Cardiovascular Exam: REGULAR RHYTHM. absent: Bradycardia, Tachycardia, Murmur - GI/Abdominal Exam GI & Abdominal Exam: Soft, Normal Bowel Sounds. absent: Distended, Firm, Guarding, Tenderness - Extremities Exam Extremities Exam: Normal Inspection. absent: Pedal Edema, Tenderness - Neurological Exam Neurological Exam: Alert, Awake, Oriented x3 Assessment and Plan - Assessment and Plan (Free Text) Assessment: 48 yo female with past medical history of heroin abuse, anxiety, DM2 on insulin , hepatitis C presented severe lower abdominal pain secondary to possible uterine fibroids, rule out PID and pyelonephritis. Patient is afebrile with improving leukocytosis. UA was negative for nitrates and leukocyte esterase. transvaginal US showed multiple uterine fibroids and right septated ovary cyst. Continue antibiotics doxycyline and zosyn. Patient received 1 dose of ceftriaxone. Discontinue vancomycin. Follow up HIV, chlamydia/GC. Blood cultures showed no growth after 24 hours, will follow up urine cultures. case reviewed and discussed with attending. Dr. Lane <Jesus Lane - Last Filed: 04/12/18 14:57> Objective - Vital Signs/Intake and Output Vital Signs (last 24 hours): Temp Pulse Resp BP Pulse Ox 98.8 F 99 H 18 163/94 H 99 04/12/18 11:51 04/12/18 12:24 04/12/18 11:51 04/12/18 12:24 04/12/18 06:00 Intake and Output: 04/12/18 04/12/18 06:59 18:59 Intake Total 0 1800 Output Total 400 600 Balance -400 1200 - Medications Medications: Current Medications Clonidine HCl (Catapres) 0.1 mg PO Q8H PRN PRN Reason: Systolic Blood Pressure Last Admin: 04/12/18 12:24 Dose: 0.1 mg Doxycycline Hyclate (Doryx) 100 mg PO Q12 [facility] PRN Reason: Protocol Last Admin: 04/12/18 09:43 Dose: 100 mg Heparin Sodium (Porcine) (Heparin) 5,000 units SC Q12 [facility] PRN Reason: Protocol Last Admin: 04/12/18 09:43 Dose: 5,000 units Sodium Chloride (Sodium Chloride 0.9%) 1,000 mls @ 100 mls/hr IV .Q10H [facility] Last Admin: 04/12/18 10:32 Dose: Not Given Piperacillin Sod/Tazobactam Sod (Zosyn 3.375 In Ns 100ml) 100 mls @ 200 mls/hr IVPB Q6 [facility] PRN Reason: Protocol Stop: 04/18/18 06:01 Last Admin: 04/12/18 12:32 Dose: 200 mls/hr Insulin Human Regular (Humulin R Low) 0 units SC ACHS [facility] PRN Reason: Protocol Last Admin: 04/12/18 12:21 Dose: Not Given Ketorolac Tromethamine (Toradol) 30 mg IVP Q6H PRN PRN Reason: Pain, moderate (4-7) Last Admin: 04/11/18 22:49 Dose: 30 mg Lorazepam (Ativan) 1 mg IVP Q6H PRN; Protocol PRN Reason: Anxiety Last Admin: 04/12/18 03:21 Dose: 1 mg Methadone HCl (Methadone) 10 mg PO DAILY [facility] Ondansetron HCl (Zofran Inj) 4 mg IVP Q4H PRN PRN Reason: Nausea/Vomiting Last Admin: 04/12/18 03:22 Dose: 4 mg Ondansetron HCl (Zofran Tab) 4 mg PO Q8H PRN PRN Reason: Nausea/Vomiting Pantoprazole Sodium (Protonix Inj) 40 mg IVP DAILY [facility] Last Admin: 04/12/18 09:44 Dose: 40 mg Potassium Phos/Sodium Phos (Neutra-Phos) 1 pkt PO BID [facility] Last Admin: 04/12/18 12:24 Dose: 1 pkt - Labs Labs: 04/12/18 05:20 04/12/18 05:20 PT 11.8 SECONDS (9.4-12.5) 04/11/18 07:30 INR 1.03 04/11/18 07:30 APTT 28.4 Seconds (25.1-36.5) 04/11/18 07:30 Assessment and Plan - Assessment and Plan (Free Text) Assessment: Infectious Diseases Attending Physician Addendum Patient seen and examined, discussed with product manager medical device. I have reviewed the pertinent clinical information for the patient, including history of present illness, medical, personal and social histories, lab results and imaging findings. I agree with the above findings, assessment and plan. In addition, given a dose of IV Rocephin, continue Zosyn and Doxycycline day 2 for this patient with possible pyelonephritis, R/O pelvic inflammatory disease with associated right ovarian cyst. Follow up final blood and urine cx, check urine GC, check HIV test. Follow up Loss Prevention Specialist consult. Will continue to monitor clinically, trend WBC count.
--- NOTE | 2018-04-12 13:06 | CP.PCM.PN ---
<Fransico Hopkins - Last Filed: 04/12/18 16:03> Subjective - Date & Time of Evaluation Date of Evaluation: 04/12/18 Time of Evaluation: 08:20 - Subjective Subjective: Patient seen and examined at bedside. Endorses passage of blood from vagina when she coughs from time to time since overnight; states that nursing staff was made aware. Patient has not had any diarrhea overnight. Patient states suprapubic pain has slightly improved since yesterday. Denies chest pain, shortness of breath, fevers, chills, headache, cough. Objective - Vital Signs/Intake and Output Vital Signs (last 24 hours): Temp Pulse Resp BP Pulse Ox 98.8 F 99 H 18 163/94 H 99 04/12/18 11:51 04/12/18 12:24 04/12/18 11:51 04/12/18 12:24 04/12/18 06:00 Intake and Output: 04/12/18 04/12/18 06:59 18:59 Intake Total 0 1200 Output Total 400 Balance -400 1200 - Medications Medications: Current Medications Clonidine HCl (Catapres) 0.1 mg PO Q8H PRN PRN Reason: Systolic Blood Pressure Last Admin: 04/12/18 12:24 Dose: 0.1 mg Doxycycline Hyclate (Doryx) 100 mg PO Q12 [facility] PRN Reason: Protocol Last Admin: 04/12/18 09:43 Dose: 100 mg Heparin Sodium (Porcine) (Heparin) 5,000 units SC Q12 [facility] PRN Reason: Protocol Last Admin: 04/12/18 09:43 Dose: 5,000 units Sodium Chloride (Sodium Chloride 0.9%) 1,000 mls @ 100 mls/hr IV .Q10H [facility] BEDS AT [facility] Last Admin: 04/12/18 10:32 Dose: Not Given Piperacillin Sod/Tazobactam Sod (Zosyn 3.375 In Ns 100ml) 100 mls @ 200 mls/hr IVPB Q6 [facility] PRN Reason: Protocol Stop: 04/18/18 06:01 Last Admin: 04/12/18 12:32 Dose: 200 mls/hr Insulin Human Regular (Humulin R Low) 0 units SC ACHS [facility] PRN Reason: Protocol Last Admin: 04/12/18 12:21 Dose: Not Given Ketorolac Tromethamine (Toradol) 30 mg IVP Q6H PRN PRN Reason: Pain, moderate (4-7) Last Admin: 04/11/18 22:49 Dose: 30 mg Lorazepam (Ativan) 1 mg IVP Q6H PRN; Protocol PRN Reason: Anxiety Last Admin: 04/12/18 03:21 Dose: 1 mg Methadone HCl (Methadone) 10 mg PO DAILY [facility]S [facility] Ondansetron HCl (Zofran Inj) 4 mg IVP Q4H PRN PRN Reason: Nausea/Vomiting Last Admin: 04/12/18 03:22 Dose: 4 mg Ondansetron HCl (Zofran Tab) 4 mg PO Q8H PRN PRN Reason: Nausea/Vomiting Pantoprazole Sodium (Protonix Inj) 40 mg IVP DAILY [facility] Last Admin: 04/12/18 09:44 Dose: 40 mg Potassium Phos/Sodium Phos (Neutra-Phos) 1 pkt PO BID [facility] 234 [facility]S [facility] Last Admin: 04/12/18 12:24 Dose: 1 pkt - Labs Labs: 04/12/18 05:20 04/12/18 05:20 PT 11.8 SECONDS (9.4-12.5) 04/11/18 07:30 INR 1.03 04/11/18 07:30 APTT 28.4 Seconds (25.1-36.5) 04/11/18 07:30 - Head Exam Head Exam: ATRAUMATIC, NORMAL INSPECTION, NORMOCEPHALIC - Eye Exam Eye Exam: Normal appearance - ENT Exam ENT Exam: Mucous Membranes Moist - Respiratory Exam Respiratory Exam: Clear to Ausculation Bilateral, NORMAL BREATHING PATTERN - Cardiovascular Exam Cardiovascular Exam: REGULAR RHYTHM, +S1, +S2 - GI/Abdominal Exam GI & Abdominal Exam: Soft, Tenderness, Diminished Bowel Sounds. absent: Distended, Firm, Guarding, Rigid - Extremities Exam Extremities Exam: Normal Inspection - Back Exam Back Exam: NORMAL INSPECTION - Neurological Exam Neurological Exam: Alert, Awake, Oriented x3 - Psychiatric Exam Psychiatric exam: Agitated - Skin Skin Exam: Intact, Normal Color, Warm Assessment and Plan - Assessment and Plan (Free Text) Assessment: Patient is a 48 F with a history of hep c (diagnosed a year ago, without treatment) and heroin and cocaine abuse who presents with complaints of suprapubic pain which began about a year ago. Plan: Lower abdominal pain with leukocytosis secondary to UTI vs. [employer] etiology (PID) -UA reveals no signs of UTI -Blood culture and Urine C&S neg after 24 hours -C. diff stool culture uncollected; patient has no longer had diarrhea -Follow [employer] recs -Continue with treatment as per primary team Elevated Alkaline phosphatase -Elevation started after doxycycline administration which can induce hepatic cholestatic injury; continue to monitor level Diarrhea -C. Diff with recent history of abx for past [employer] infection. Uncollected; patient has no longer had diarrhea Pancreatic duct dilation -consider MRCP abdomen with and without contrast if enzyme elevation persists Hx of Hepatitis C -Not treated <Delvin,Kovil V - Last Filed: 04/12/18 22:51> Objective - Vital Signs/Intake and Output Vital Signs (last 24 hours): Temp Pulse Resp BP Pulse Ox 98.5 F 78 18 147/92 H 99 04/12/18 17:08 04/12/18 17:08 04/12/18 17:08 04/12/18 17:08 04/12/18 06:00 Intake and Output: 04/12/18 04/13/18 18:59 06:59 Intake Total 1800 Output Total 600 Balance 1200 - Medications Medications: Current Medications Clonidine HCl (Catapres) 0.1 mg PO Q8H PRN PRN Reason: Systolic Blood Pressure Last Admin: 04/12/18 12:24 Dose: 0.1 mg Doxycycline Hyclate (Doryx) 100 mg PO Q12 [facility] PRN Reason: Protocol Last Admin: 04/12/18 22:23 Dose: 100 mg Heparin Sodium (Porcine) (Heparin) 5,000 units SC Q12 [facility] PRN Reason: Protocol Last Admin: 04/12/18 22:23 Dose: 5,000 units Sodium Chloride (Sodium Chloride 0.9%) 1,000 mls @ 100 mls/hr IV .Q10H [facility] Last Admin: 04/12/18 10:32 Dose: Not Given Piperacillin Sod/Tazobactam Sod (Zosyn 3.375 In Ns 100ml) 100 mls @ 200 mls/hr IVPB Q6 [facility] PRN Reason: Protocol Stop: 04/18/18 06:01 Last Admin: 04/12/18 18:19 Dose: 200 mls/hr Insulin Human Regular (Humulin R Low) 0 units SC ACHS [facility] PRN Reason: Protocol Last Admin: 04/12/18 18:20 Dose: 1 u Ketorolac Tromethamine (Toradol) 30 mg IVP Q6H PRN PRN Reason: Pain, moderate (4-7) Last Admin: 04/12/18 19:48 Dose: 30 mg Lorazepam (Ativan) 1 mg IVP Q6H PRN; Protocol PRN Reason: Anxiety Last Admin: 04/12/18 03:21 Dose: 1 mg Methadone HCl (Methadone) 10 mg PO DAILY [facility] 234 [facility]S [facility] Ondansetron HCl (Zofran Inj) 4 mg IVP Q4H PRN PRN Reason: Nausea/Vomiting Last Admin: 04/12/18 03:22 Dose: 4 mg Ondansetron HCl (Zofran Tab) 4 mg PO Q8H PRN PRN Reason: Nausea/Vomiting Pantoprazole Sodium (Protonix Inj) 40 mg IVP DAILY [facility] 234 [facility]S AT [facility] Last Admin: 04/12/18 09:44 Dose: 40 mg Potassium Phos/Sodium Phos (Neutra-Phos) 1 pkt PO BID [facility] 234 [facility]S AT [facility] Last Admin: 04/12/18 18:20 Dose: 1 pkt - Labs Labs: 04/12/18 05:20 04/12/18 05:20 PT 11.8 SECONDS (9.4-12.5) 04/11/18 07:30 INR 1.03 04/11/18 07:30 APTT 28.4 Seconds (25.1-36.5) 04/11/18 07:30 Attending/Attestation - Attestation I have personally seen and examined this patient.: Yes I have fully participated in the care of the patient.: Yes I have reviewed all pertinent clinical information, including history, physical exam and plan: Yes Notes (Text): p 04/12/18 22:51
--- NOTE | 2018-04-12 13:10 | CP.PCM.PN ---
<Ginger Ashton - Last Filed: 04/12/18 13:42> Subjective - Date & Time of Evaluation Date of Evaluation: 04/12/18 Time of Evaluation: 13:07 - Subjective Subjective: Ginger Ashton Progress Note for Dr. Connelly Ms. Agosto was examined at bedside this morning. She reported continuation of her abdominal pain. She also reported vaginal blood clot passing upon coughing. She stated that she had been given treatment for PID about a month ago, but did not finish the antibiotics. She denies any dizziness, shortness of breath, chest pain, nausea, vomiting, or diarrhea. Objective - Vital Signs/Intake and Output Vital Signs (last 24 hours): Temp Pulse Resp BP Pulse Ox 98.8 F 99 H 18 163/94 H 99 04/12/18 11:51 04/12/18 12:24 04/12/18 11:51 04/12/18 12:24 04/12/18 06:00 Intake and Output: 04/12/18 04/12/18 06:59 18:59 Intake Total 0 1200 Output Total 400 Balance -400 1200 - Medications Medications: Current Medications Clonidine HCl (Catapres) 0.1 mg PO Q8H PRN PRN Reason: Systolic Blood Pressure Last Admin: 04/12/18 12:24 Dose: 0.1 mg Doxycycline Hyclate (Doryx) 100 mg PO Q12 [facility] PRN Reason: Protocol Last Admin: 04/12/18 09:43 Dose: 100 mg Heparin Sodium (Porcine) (Heparin) 5,000 units SC Q12 [facility] PRN Reason: Protocol Last Admin: 04/12/18 09:43 Dose: 5,000 units Sodium Chloride (Sodium Chloride 0.9%) 1,000 mls @ 100 mls/hr IV .Q10H [facility] Last Admin: 04/12/18 10:32 Dose: Not Given Piperacillin Sod/Tazobactam Sod (Zosyn 3.375 In Ns 100ml) 100 mls @ 200 mls/hr IVPB Q6 [facility] PRN Reason: Protocol Stop: 04/18/18 06:01 Last Admin: 04/12/18 12:32 Dose: 200 mls/hr Insulin Human Regular (Humulin R Low) 0 units SC ACHS [facility] PRN Reason: Protocol Last Admin: 08/09/18 12:21 Dose: Not Given Ketorolac Tromethamine (Toradol) 30 mg IVP Q6H PRN PRN Reason: Pain, moderate (4-7) Last Admin: 04/11/18 22:49 Dose: 30 mg Lorazepam (Ativan) 1 mg IVP Q6H PRN; Protocol PRN Reason: Anxiety Last Admin: 04/12/18 03:21 Dose: 1 mg Methadone HCl (Methadone) 10 mg PO DAILY [facility] Ondansetron HCl (Zofran Inj) 4 mg IVP Q4H PRN PRN Reason: Nausea/Vomiting Last Admin: 04/12/18 03:22 Dose: 4 mg Ondansetron HCl (Zofran Tab) 4 mg PO Q8H PRN PRN Reason: Nausea/Vomiting Pantoprazole Sodium (Protonix Inj) 40 mg IVP DAILY [facility] Last Admin: 04/12/18 09:44 Dose: 40 mg Potassium Phos/Sodium Phos (Neutra-Phos) 1 pkt PO BID [facility] Last Admin: 04/12/18 12:24 Dose: 1 pkt - Labs Labs: 04/12/18 05:20 04/12/18 05:20 PT 11.8 SECONDS (9.4-12.5) 04/11/18 07:30 INR 1.03 04/11/18 07:30 APTT 28.4 Seconds (25.1-36.5) 04/11/18 07:30 - Constitutional Appears: In Acute Distress, Unkempt - Head Exam Head Exam: ATRAUMATIC, NORMOCEPHALIC - Eye Exam Eye Exam: Normal appearance, PERRL - ENT Exam ENT Exam: Mucous Membranes Moist - Respiratory Exam Respiratory Exam: Clear to Ausculation Bilateral, NORMAL BREATHING PATTERN. absent: Rales, Rhonchi, Wheezes - Cardiovascular Exam Cardiovascular Exam: REGULAR RHYTHM, +S1, +S2 - GI/Abdominal Exam GI & Abdominal Exam: Soft, Tenderness, Normal Bowel Sounds. absent: Distended, Firm, Rigid Additional comments: tenderness to lower abdominal R and L quadrants - Extremities Exam Extremities Exam: Normal Inspection. absent: Pedal Edema, Tenderness - Neurological Exam Neurological Exam: Alert, Awake, Normal Gait, Oriented x3 - Skin Skin Exam: Normal Color Assessment and Plan - Assessment and Plan (Free Text) Assessment: 48 F with past medical history of heroin abuse, anxiety, DM2 on insulin, hepatitis C presented to ED with severe lower abdominal pain and admitted for sepsis. Plan: Sepsis - WBC count 28 from 34.4. Lactate 3.4. Glucose 602 - Vitals stable - continue zosyn, doxy and 1 dose rocephin as per ID - d/c vanc as per ID - Continue NS@100 - BCx neg prelim x1 - f/u urine cultures - pending: stool studies - ID Consult: Dr. Ariana walters appreciated - d/c tele Abdominal pain, nausea, vomiting, diarrhea - CT Abdomen: Mild hepatomegaly. Main pancreatic duct is dilated measuring 5-6 mm. Enlarged lobular uterus with multiple masses, likely fibroids. - pending fecal leukocytes, Ova & Parasites - pending H. Pylori Ag - Zofran 4mg IVP q4prn - advance to clear liquid diet and full liquid for dinner if tolerated - GI consult: Delvin- consider MRCP for pancreatic duct dilatation r/o PID - pt admits to PID 1 month prior and noncompletion of treatment - continues with abdominal pain - continue zosyn, doxy and 1 dose rocephin as per ID - d/c vanc as per ID - ID Consult: Dr. Ariana walters appreciated - remedy developer Consulted, romeo Pierce appreciated - pending STI results Hypokalemia - 3.4 today - repleted, monitor Hypophosphatemia - 2.4 today - repleted, monitor Diabetes - Blood glucose 04/11 to 8: 156 133 149 165 - Hold home metformin, glucotrol - continue insulin sliding scale - diabetes control education Substance abuse - Hx of heroin abuse, snorted - begin tomorrow: methodone 10mg - ativan 1mg PRN - start clonidine 0.1mg PO q8 PRN SBP>150 - continue to monitor for signs of withdrawal - UDS: +opiates, +cocaine - HIV-1/2 AG/ABG - substance abuse cessation education Uterine fibroids - CT Abdomen: Enlarged lobular uterus with multiple masses, likely fibroids. - TVUS: multiple fibroids and a septated cyst in R ovary - h/o myomectomy - ROD GREASER consult: Liz- follow up outpatient for possible myomectomy GI/DVT ppx: Protonix 40mg Patient examined and reviewed with Dr. Connelly <Dipak Connelly - Last Filed: 04/14/18 12:49> Objective - Vital Signs/Intake and Output Vital Signs (last 24 hours): Temp Pulse Resp BP Pulse Ox 97.2 F L 90 20 144/82 100 04/14/18 08:14 04/14/18 08:14 04/14/18 08:14 04/14/18 08:13 04/14/18 08:14 Intake and Output: 04/14/18 04/14/18 06:59 18:59 Intake Total 760 Output Total 1300 Balance -540 - Medications Medications: Current Medications Clonidine HCl (Catapres) 0.1 mg PO Q8H PRN PRN Reason: Systolic Blood Pressure Last Admin: 04/12/18 12:24 Dose: 0.1 mg Doxycycline Hyclate (Doryx) 100 mg PO Q12 [facility] PRN Reason: Protocol Last Admin: 04/14/18 09:34 Dose: 100 mg Heparin Sodium (Porcine) (Heparin) 5,000 units SC Q12 [facility] PRN Reason: Protocol Last Admin: 04/14/18 09:34 Dose: 5,000 units Ibuprofen (Motrin Tab) 400 mg PO Q6H PRN PRN Reason: Pain, moderate (4-7) Last Admin: 04/14/18 10:49 Dose: 400 mg Insulin Human Regular (Humulin R Low) 0 units SC ACHS [facility] PRN Reason: Protocol Last Admin: 04/14/18 09:34 Dose: 2 unit Metronidazole (Flagyl) 500 mg PO Q8 [facility] PRN Reason: Protocol Last Admin: 04/14/18 10:49 Dose: 500 mg Ondansetron HCl (Zofran Tab) 4 mg PO Q8H PRN PRN Reason: Nausea/Vomiting Ondansetron HCl (Zofran Inj) 4 mg IVP Q6H PRN PRN Reason: Nausea/Vomiting Pantoprazole Sodium (Protonix Ec Tab) 40 mg PO 0600 [facility] Last Admin: 04/14/18 05:48 Dose: 40 mg Potassium Phos/Sodium Phos (Neutra-Phos) 1 pkt PO BID [facility] Last Admin: 04/14/18 09:34 Dose: 1 pkt - Labs Labs: 04/14/18 06:30 04/14/18 06:30 PT 11.8 SECONDS (9.4-12.5) 04/11/18 07:30 INR 1.03 04/11/18 07:30 APTT 28.4 Seconds (25.1-36.5) 04/11/18 07:30 Attending/Attestation - Attestation I have personally seen and examined this patient.: Yes I have fully participated in the care of the patient.: Yes I have reviewed all pertinent clinical information, including history, physical exam and plan: Yes Notes (Text): 04/14/18 12:45 Attending note; Patient seen and examined with resident. Patient is a 48-year-old female with the past medical history of heroin abuse, cocaine abuse ,anxiety, DM2 on insulin, hepatitis C , history of STDs is presented to ED with severe lower abdominal pain and admitted for sepsis. According to the patient she was recently treated with po antibiotics by ROD GREASER for pelvic inflammatory disease. Does not follow up with any PMD or regular acquisition associate physician. Patient is currently with elevated white count. Started on IV Zosyn and vancomycin. Rogel culture ordered. ROD GREASER evaluation and ID evaluation requested. Patient with a history of fibroids; needs outpatient follow-up. Chronic opiate seeking behavior. Monitor closely. History of cocaine abuse and heroin abuse. Denies any IV drug abuse recently. History of hep C; not treated. Urine drug screen is positive for opiates and cocaine. Complete drug abuse cessation is strongly advised. I\\ Upon discharge patient will be referred to [facility] clinic. 04/14/18 12:49
--- NOTE | 2018-04-12 15:36 | US ---
Date of service: 04/12/2018 HISTORY: alk phos elevated COMPARISON: CT abdomen and pelvis from 04/11/2018 TECHNIQUE: Sonographic evaluation of the abdomen. FINDINGS: LIVER: Measures 15.0 cm. Normal echogenicity of the liver parenchyma. There is a 1.2 x 0.8 x 1.2 cm homogeneously hyperechoic round lesion in the posterior right hepatic lobe. . No intrahepatic bile duct dilatation. GALLBLADDER: There are no gallstones, wall thickening or pericholecystic fluid. The sonographic Green's sign is negative. COMMON BILE DUCT: Measures 6.8 mm. No stones. No dilatation. PANCREAS: Unremarkable as visualized. No mass. No ductal dilatation. RIGHT KIDNEY: Measures 12.5cm. Normal echogenicity. No calculus, mass, or hydronephrosis. LEFT KIDNEY: Measures 11.6cm. Normal echogenicity. No calculus, mass, or hydronephrosis. SPLEEN: Normal in size and contour. No mass. AORTA: No aneurysmal dilatation. IVC: Unremarkable. OTHER FINDINGS: None. IMPRESSION: 1.2 cm round lesion in the posterior right hepatic lobe is statistically most compatible with a hemangioma. No cholelithiasis or biliary dilatation
[2018-04-13] MEDS: Piperacillin/Tazobact 3.375 gm 100 ML IVPB SCH ×5 (00:51→23:31)
[2018-04-13] MEDS: Sodium Chloride 0.9% 1,000 ML IV SCH ×2 (00:58→09:40)
[2018-04-13 06:19] LABS: BASO # 0.09 K/mm3 (0.0-2.0); BASO % 0.4 % (0.0-3.0); EOS # 0.1 (0.0-0.7); EOS % 0.4 % (1.5-5.0); GRAN # 15.65 (1.4-6.5); HEMOGLOBIN 11.8 g/dL (12.0-16.0); LYMPH # 2.9 (1.2-3.4); LYMPH % 14.2 % (22.0-35.0); MEAN CELL VOLUME 84.3 fl (80.0-105.0); MEAN CORPUSCULAR HEMOGLOBIN 29.8 pg (25.0-35.0); MEAN CORPUSCULAR HGB CONC 35.3 g/dl (31.0-37.0); MEAN PLATELET VOLUME 9.8 fl (7.0-11.0); MONO # 1.9 (0.1-0.6); RBC 3.96 10^6/uL (3.5-6.1); RED CELL DISTRIBUTION WIDTH 13.5 % (11.5-14.5); WHITE BLOOD COUNT 20.6 10^3/ul (4.5-11.0)
[2018-04-13] MEDS: Pantoprazole 40 mg EC Tab PO SCH (06:36)
[2018-04-13 07:57] LABS: ALB/GLOB RATIO 0.9 (1.1-1.8); ALBUMIN 3.7 g/dL (3.0-4.8); ALT/SGPT 9 U/L (7-56); AST/SGOT 28 U/L (14-36); BLOOD UREA NITROGEN 12 mg/dL (7-21); CALCIUM 8.5 mg/dL (8.4-10.5); GFR AFRICAN-AMERICAN > 60; GFR NON-AFRICAN AMERICAN > 60
[2018-04-13] MEDS: Insulin Reg-LOW-Coverage SC SCH ×4 (08:28→21:30)
[2018-04-13 08:49] VITALS: RESP 20
--- NOTE | 2018-04-13 09:05 | CP.PCM.PN ---
<Ginger Ashton - Last Filed: 04/13/18 13:47> Subjective - Date & Time of Evaluation Date of Evaluation: 04/13/18 Time of Evaluation: 09:02 - Subjective Subjective: Ginger Ashton PGY1 Progress Note for Dr. Connelly Ms. Agosto was examined at bedside this morning. She continues to complain of abdominal pain, nausea, and one episode of vomiting clear liquid. Pt denies any dizziness, shortness of breath, chest pain, diarrhea, or dysuria. Afternoon: nurse reports patient looking sleepy after family brought in medication for pt to take. Objective - Vital Signs/Intake and Output Vital Signs (last 24 hours): Temp Pulse Resp BP Pulse Ox 98.1 F 86 20 152/88 H 100 04/13/18 08:48 04/13/18 08:48 04/13/18 08:48 04/13/18 08:48 04/13/18 08:48 Intake and Output: 04/13/18 04/13/18 06:59 18:59 Intake Total 720 Balance 720 - Medications Medications: Current Medications Clonidine HCl (Catapres) 0.1 mg PO Q8H PRN PRN Reason: Systolic Blood Pressure Last Admin: 04/12/18 12:24 Dose: 0.1 mg Doxycycline Hyclate (Doryx) 100 mg PO Q12 [facility] PRN Reason: Protocol Last Admin: 04/12/18 22:23 Dose: 100 mg Heparin Sodium (Porcine) (Heparin) 5,000 units SC Q12 [facility] PRN Reason: Protocol Last Admin: 04/12/18 22:23 Dose: 5,000 units Sodium Chloride (Sodium Chloride 0.9%) 1,000 mls @ 100 mls/hr IV .Q10H [facility] Last Admin: 04/13/18 00:58 Dose: 100 mls/hr Piperacillin Sod/Tazobactam Sod (Zosyn 3.375 In Ns 100ml) 100 mls @ 200 mls/hr IVPB Q6 [facility] PRN Reason: Protocol Stop: 04/18/18 06:01 Last Admin: 04/13/18 06:36 Dose: 200 mls/hr Insulin Human Regular (Humulin R Low) 0 units SC ACHS [facility] PRN Reason: Protocol Last Admin: 04/13/18 08:28 Dose: 2 u Ketorolac Tromethamine (Toradol) 30 mg IVP Q6H PRN PRN Reason: Pain, moderate (4-7) Last Admin: 04/13/18 08:29 Dose: 30 mg Lorazepam (Ativan) 1 mg IVP Q6H PRN; Protocol PRN Reason: Anxiety Last Admin: 04/13/18 00:53 Dose: 1 mg Methadone HCl (Methadone) 10 mg PO DAILY [facility] Ondansetron HCl (Zofran Inj) 4 mg IVP Q4H PRN PRN Reason: Nausea/Vomiting Last Admin: 04/13/18 04:59 Dose: 4 mg Ondansetron HCl (Zofran Tab) 4 mg PO Q8H PRN PRN Reason: Nausea/Vomiting Pantoprazole Sodium (Protonix Ec Tab) 40 mg PO 0600 [facility] Last Admin: 04/13/18 06:36 Dose: 40 mg Potassium Phos/Sodium Phos (Neutra-Phos) 1 pkt PO BID [facility] Last Admin: 04/12/18 18:20 Dose: 1 pkt - Labs Labs: 04/13/18 05:30 04/13/18 05:30 PT 11.8 SECONDS (9.4-12.5) 04/11/18 07:30 INR 1.03 04/11/18 07:30 APTT 28.4 Seconds (25.1-36.5) 04/11/18 07:30 - Constitutional Appears: Well, No Acute Distress - Head Exam Head Exam: ATRAUMATIC, NORMOCEPHALIC - Eye Exam Eye Exam: EOMI, Normal appearance - ENT Exam ENT Exam: Mucous Membranes Moist - Respiratory Exam Respiratory Exam: Clear to Ausculation Bilateral, NORMAL BREATHING PATTERN. absent: Rales, Rhonchi, Wheezes - Cardiovascular Exam Cardiovascular Exam: REGULAR RHYTHM, +S1, +S2. absent: Gallop, Rubs, Murmur - GI/Abdominal Exam GI & Abdominal Exam: Soft, Normal Bowel Sounds. absent: Distended, Guarding, Tenderness - Extremities Exam Extremities Exam: Normal Inspection. absent: Calf Tenderness - Neurological Exam Neurological Exam: Alert, Awake, Oriented x3 - Psychiatric Exam Psychiatric exam: Normal Affect, Normal Mood Assessment and Plan - Assessment and Plan (Free Text) Assessment: 48 F with past medical history of heroin abuse, anxiety, DM2 on insulin, hepatitis C presented to ED with severe lower abdominal pain and admitted for sepsis. Plan: Sepsis - WBC count 20.6 today from 34.4 - Vitals stable - continue zosyn, doxy and 1 dose rocephin as per ID - d/c NS@100 - BCx neg prelim x2 - f/u urine cultures - pending: stool studies - ID Consult: Dr. Ariana walters appreciated Abdominal pain, nausea, vomiting, diarrhea - CT Abdomen: Mild hepatomegaly. Main pancreatic duct is dilated measuring 5-6 mm. Enlarged lobular uterus with multiple masses, likely fibroids. - pt reports abdominal pain but no tenderness appreciated on physical exam - pending fecal leukocytes, Ova & Parasites - pending H. Pylori Ag - Zofran 4mg IVP q4prn - advance to regular diet - GI consult: Delvin- consider MRCP for pancreatic duct dilatation r/o PID - pt admits to PID 1 month prior and noncompletion of treatment - continues with abdominal pain, but no tenderness on physical exam - continue zosyn, doxy and 1 dose rocephin as per ID - ID Consult: Dr. Ariana walters appreciated - web press operator Consulted, romeo Pierce appreciated - pending STI results Hypokalemia - 3.3 today - repleted, monitor Hypophosphatemia - 1.9 today - repleted, monitor Diabetes - Blood glucose 04/12 to 04/13: 165 158 250 211 - Hold home metformin, glucotrol - continue insulin sliding scale - diabetes control education Substance abuse - Hx of heroin abuse, snorted - d/c toradol - UDS ordered - d/c methodone 10mg - d/c ativan 1mg PRN - continue clonidine 0.1mg PO q8 PRN SBP>150 - continue to monitor for signs of withdrawal - UDS: +opiates, +cocaine - HIV-1/2 AG/ABG - substance abuse cessation education Uterine fibroids - CT Abdomen: Enlarged lobular uterus with multiple masses, likely fibroids. - TVUS: multiple fibroids and a septated cyst in R ovary - h/o myomectomy - SENIOR COURT OFFICE ASSISTANT consult: Liz- follow up outpatient for possible myomectomy GI/DVT ppx: Protonix 40mg Patient examined and reviewed with Dr. Connelly <Dipak Connelly - Last Filed: 04/14/18 12:56> Objective - Vital Signs/Intake and Output Vital Signs (last 24 hours): Temp Pulse Resp BP Pulse Ox 97.2 F L 90 20 144/82 100 04/14/18 08:14 04/14/18 08:14 04/14/18 08:14 04/14/18 08:13 04/14/18 08:14 Intake and Output: 04/14/18 04/14/18 06:59 18:59 Intake Total 760 Output Total 1300 Balance -540 - Medications Medications: Current Medications Clonidine HCl (Catapres) 0.1 mg PO Q8H PRN PRN Reason: Systolic Blood Pressure Last Admin: 04/12/18 12:24 Dose: 0.1 mg Doxycycline Hyclate (Doryx) 100 mg PO Q12 [facility] PRN Reason: Protocol Last Admin: 04/14/18 09:34 Dose: 100 mg Heparin Sodium (Porcine) (Heparin) 5,000 units SC Q12 [facility] PRN Reason: Protocol Last Admin: 04/14/18 09:34 Dose: 5,000 units Ibuprofen (Motrin Tab) 400 mg PO Q6H PRN PRN Reason: Pain, moderate (4-7) Last Admin: 04/14/18 10:49 Dose: 400 mg Insulin Human Regular (Humulin R Low) 0 units SC ACHS [facility] PRN Reason: Protocol Last Admin: 04/14/18 09:34 Dose: 2 unit Metronidazole (Flagyl) 500 mg PO Q8 [facility] PRN Reason: Protocol Last Admin: 04/14/18 10:49 Dose: 500 mg Ondansetron HCl (Zofran Tab) 4 mg PO Q8H PRN PRN Reason: Nausea/Vomiting Ondansetron HCl (Zofran Inj) 4 mg IVP Q6H PRN PRN Reason: Nausea/Vomiting Pantoprazole Sodium (Protonix Ec Tab) 40 mg PO 0600 [facility] Last Admin: 04/14/18 05:48 Dose: 40 mg Potassium Phos/Sodium Phos (Neutra-Phos) 1 pkt PO BID [facility] Last Admin: 04/14/18 09:34 Dose: 1 pkt - Labs Labs: 04/14/18 06:30 04/14/18 06:30 PT 11.8 SECONDS (9.4-12.5) 04/11/18 07:30 INR 1.03 04/11/18 07:30 APTT 28.4 Seconds (25.1-36.5) 04/11/18 07:30 Attending/Attestation - Attestation I have personally seen and examined this patient.: Yes I have fully participated in the care of the patient.: Yes I have reviewed all pertinent clinical information, including history, physical exam and plan: Yes Notes (Text): 04/14/18 12:50 Attending note; Patient seen and examined with resident. Patient is a 48-year-old female with the past medical history of heroin abuse, cocaine abuse ,anxiety, DM2 on insulin, hepatitis C , history of STDs is presented to ED with severe lower abdominal pain and admitted for sepsis. According to the patient she was recently treated with po antibiotics by SENIOR COURT OFFICE ASSISTANT for pelvic inflammatory disease. Patient is currently with elevated white count. Patient is afebrile and nontoxic. Started on IV Zosyn and doxycycline. Blood culture is negative. Urine culture is negative. SENIOR COURT OFFICE ASSISTANT evaluation appreciated . Patient with a history of fibroids; needs outpatient follow-up. ID evaluation appreciated. Continue to monitor white count. Chronic opiate seeking behavior. Monitor closely. History of cocaine abuse and heroin abuse. Denies any IV drug abuse recently. History of hep C; not treated. suspected drugs in the hospital. Monitor closely. Screen all the visitors. Currently patient is alert and awake. Urine drug screen is positive for opiates and cocaine. Complete drug abuse cessation is strongly advised. Upon discharge patient [place] be [place] [facility] [place]. 04/14/18 12:56
[2018-04-13] MEDS: Potassium & Sodium Phosphate PO SCH ×2 (09:40→17:28)
--- NOTE | 2018-04-13 12:55 | CP.PCM.PN ---
<Shannan Lord - Last Filed: 04/13/18 12:54> Subjective - Date & Time of Evaluation Date of Evaluation: 04/13/18 Time of Evaluation: 09:00 - Subjective Subjective: PGY-3 Infectious disease progress note for Dr. Lane's service Patient seen and examined at bedside, no acute distress. Patient states that she continues to have intermitted pain. Patient reports vomiting adn diarrhea overnight however was not witnessed but nurse and sample was not able to be collected. She denies fever, chills, Dysuria, headache dizziness, chest pain. Objective - Vital Signs/Intake and Output Vital Signs (last 24 hours): Temp Pulse Resp BP Pulse Ox 98.1 F 86 20 152/88 H 100 04/13/18 08:48 04/13/18 08:48 04/13/18 08:48 04/13/18 08:48 04/13/18 08:48 Intake and Output: 04/13/18 04/13/18 06:59 18:59 Intake Total 720 Balance 720 - Medications Medications: Current Medications Clonidine HCl (Catapres) 0.1 mg PO Q8H PRN PRN Reason: Systolic Blood Pressure Last Admin: 04/12/18 12:24 Dose: 0.1 mg Doxycycline Hyclate (Doryx) 100 mg PO Q12 [facility] PRN Reason: Protocol Last Admin: 04/13/18 09:39 Dose: 100 mg Heparin Sodium (Porcine) (Heparin) 5,000 units SC Q12 [facility] PRN Reason: Protocol Last Admin: 04/13/18 09:40 Dose: 5,000 units Piperacillin Sod/Tazobactam Sod (Zosyn 3.375 In Ns 100ml) 100 mls @ 200 mls/hr IVPB Q6 [facility] PRN Reason: Protocol Stop: 04/18/18 06:01 Last Admin: 04/13/18 12:03 Dose: 200 mls/hr Insulin Human Regular (Humulin R Low) 0 units SC ACHS [facility] PRN Reason: Protocol Last Admin: 04/13/18 12:01 Dose: 2 u Ondansetron HCl (Zofran Tab) 4 mg PO Q8H PRN PRN Reason: Nausea/Vomiting Pantoprazole Sodium (Protonix Ec Tab) 40 mg PO 0600 [facility] Last Admin: 04/13/18 06:36 Dose: 40 mg Potassium Phos/Sodium Phos (Neutra-Phos) 1 pkt PO BID [facility] Last Admin: 04/13/18 09:40 Dose: 1 pkt - Labs Labs: 04/13/18 05:30 04/13/18 05:30 PT 11.8 SECONDS (9.4-12.5) 04/11/18 07:30 INR 1.03 04/11/18 07:30 APTT 28.4 Seconds (25.1-36.5) 04/11/18 07:30 - Constitutional Appears: No Acute Distress - Head Exam Head Exam: ATRAUMATIC, NORMAL INSPECTION, NORMOCEPHALIC - Eye Exam Eye Exam: Normal appearance - ENT Exam ENT Exam: Mucous Membranes Moist - Respiratory Exam Respiratory Exam: Clear to Ausculation Bilateral, NORMAL BREATHING PATTERN. absent: Rales, Rhonchi, Wheezes, Respiratory Distress, Stridor - Cardiovascular Exam Cardiovascular Exam: REGULAR RHYTHM. absent: Bradycardia, Tachycardia - GI/Abdominal Exam GI & Abdominal Exam: Soft, Normal Bowel Sounds. absent: Distended, Firm, Tenderness - Extremities Exam Extremities Exam: Normal Inspection - Neurological Exam Neurological Exam: Alert, Awake, Oriented x3 - Skin Skin Exam: Dry, Intact, Normal Color, Warm Assessment and Plan - Assessment and Plan (Free Text) Assessment: 48 yo female with past medical history of heroin abuse, anxiety, DM2 on insulin , hepatitis C presented severe lower abdominal pain secondary to possible uterine fibroids, rule out PID. Patient is afebrile with improving leukocytosis. UA was negative for nitrates and leukocyte esterase. transvaginal US showed multiple uterine fibroids and right septated ovary cyst. Continue antibiotics doxycyline and zosyn day 3. Patient received 1 dose of ceftriaxone. HIV was nonreactive. Follow up chlamydia/GC. Blood and urine cultures showed no growth. Follow up with [facility]. Continue to trend WBC. case reviewed and discussed with attending. Dr. Lane <Jesus Lane - Last Filed: 04/13/18 17:29> Subjective - Subjective Subjective: Infectious Diseases Attending Physician Addendum Patient seen and examined, discussed with medical assisting instructor. I have reviewed the pertinent clinical information for the patient, including history of present illness, medical, personal and social histories, lab results and imaging findings. I agree with the above findings, assessment and plan. In addition, will continue the patient on Doxycycline and Zosyn for patient with SIRS / sepsis with possible PID. Will follow up urine GC. Will monitor clinically. Objective - Vital Signs/Intake and Output Vital Signs (last 24 hours): Temp Pulse Resp BP Pulse Ox 98.1 F 86 20 152/88 H 100 04/13/18 08:48 04/13/18 08:48 04/13/18 08:48 04/13/18 08:48 04/13/18 08:48 Intake and Output: 04/13/18 04/13/18 06:59 18:59 Intake Total 720 Balance 720 - Medications Medications: Current Medications Clonidine HCl (Catapres) 0.1 mg PO Q8H PRN PRN Reason: Systolic Blood Pressure Last Admin: 04/12/18 12:24 Dose: 0.1 mg Doxycycline Hyclate (Doryx) 100 mg PO Q12 [facility] PRN Reason: Protocol Last Admin: 04/13/18 09:39 Dose: 100 mg Heparin Sodium (Porcine) (Heparin) 5,000 units SC Q12 [facility] PRN Reason: Protocol Last Admin: 04/13/18 09:40 Dose: 5,000 units Piperacillin Sod/Tazobactam Sod (Zosyn 3.375 In Ns 100ml) 100 mls @ 200 mls/hr IVPB Q6 [facility] PRN Reason: Protocol Stop: 04/18/18 06:01 Last Admin: 04/13/18 12:03 Dose: 200 mls/hr Insulin Human Regular (Humulin R Low) 0 units SC ACHS [facility] PRN Reason: Protocol Last Admin: 04/13/18 12:01 Dose: 2 u Ondansetron HCl (Zofran Tab) 4 mg PO Q8H PRN PRN Reason: Nausea/Vomiting Pantoprazole Sodium (Protonix Ec Tab) 40 mg PO 0600 [facility] Last Admin: 04/13/18 06:36 Dose: 40 mg Potassium Phos/Sodium Phos (Neutra-Phos) 1 pkt PO BID [facility] Last Admin: 04/13/18 09:40 Dose: 1 pkt - Labs Labs: 04/13/18 05:30 04/13/18 05:30 PT 11.8 SECONDS (9.4-12.5) 04/11/18 07:30 INR 1.03 04/11/18 07:30 APTT 28.4 Seconds (25.1-36.5) 04/11/18 07:30
--- NOTE | 2018-04-13 13:41 | CP.PCM.PN ---
Subjective - Date & Time of Evaluation Date of Evaluation: 04/13/18 Time of Evaluation: 12:55 - Subjective Subjective: Varun Conrad PGY2 - Progress note for Dr. Connelly and Hospitalist Service Nursing contacted hospitalist service with concerns of suspicious activity regarding the patient and her . Nursing indicated that while making her rounds she observed the patient had snuck into the patient's room and was at her bedside. Patient had bowel movement in her bed and was taken to the patient's in room bathroom with assistance by . Nursing attempted to stop and patient from being in bathroom alone together. Security was contacted. Patient exited the bathroom with and came to rest in the bed. Upon further investigation of bathroom three suspicious paper bags were found. Patient was asked about bags and bathroom activity. Patient reported she had no idea about the bags found and that she was only in the bathroom to clean herself up after having accidental bowel movement. Patient was alert and oriented x 3 with intermittent somnolence if not actively stimulated with verbal communication. Patient had fluent speech and had appropriate responses to questioning. She denies fever, chills, nausea, vomiting, epistaxis, cough, chest pain, shortness of breath, drowsiness, weakness, numbness or gait instability. She complained of having accidental bowel movement. Objective - Vital Signs/Intake and Output Vital Signs (last 24 hours): Temp Pulse Resp BP Pulse Ox 98.1 F 86 20 152/88 H 100 04/13/18 08:48 04/13/18 08:48 04/13/18 08:48 04/13/18 08:48 04/13/18 08:48 Intake and Output: 04/13/18 04/13/18 06:59 18:59 Intake Total 720 Balance 720 - Medications Medications: Current Medications Clonidine HCl (Catapres) 0.1 mg PO Q8H PRN PRN Reason: Systolic Blood Pressure Last Admin: 04/12/18 12:24 Dose: 0.1 mg Doxycycline Hyclate (Doryx) 100 mg PO Q12 [facility] PRN Reason: Protocol Last Admin: 04/13/18 09:39 Dose: 100 mg Heparin Sodium (Porcine) (Heparin) 5,000 units SC Q12 [facility] PRN Reason: Protocol Last Admin: 04/13/18 09:40 Dose: 5,000 units Piperacillin Sod/Tazobactam Sod (Zosyn 3.375 In Ns 100ml) 100 mls @ 200 mls/hr IVPB Q6 [facility] PRN Reason: Protocol Stop: 04/18/18 06:01 Last Admin: 04/13/18 12:03 Dose: 200 mls/hr Insulin Human Regular (Humulin R Low) 0 units SC ACHS [facility] PRN Reason: Protocol Last Admin: 04/13/18 12:01 Dose: 2 u Ondansetron HCl (Zofran Tab) 4 mg PO Q8H PRN PRN Reason: Nausea/Vomiting Pantoprazole Sodium (Protonix Ec Tab) 40 mg PO 0600 [facility] Last Admin: 04/13/18 06:36 Dose: 40 mg Potassium Phos/Sodium Phos (Neutra-Phos) 1 pkt PO BID [facility] Last Admin: 04/13/18 09:40 Dose: 1 pkt - Labs Labs: 04/13/18 05:30 04/13/18 05:30 PT 11.8 SECONDS (9.4-12.5) 04/11/18 07:30 INR 1.03 04/11/18 07:30 APTT 28.4 Seconds (25.1-36.5) 04/11/18 07:30 - Constitutional Appears: No Acute Distress - Head Exam Head Exam: ATRAUMATIC, NORMAL INSPECTION, NORMOCEPHALIC - Eye Exam Eye Exam: EOMI Pupil Exam: Fixed Additional comments: pupils at 3 mm bilaterally - Respiratory Exam Respiratory Exam: Rhonchi, NORMAL BREATHING PATTERN. absent: Wheezes - Cardiovascular Exam Cardiovascular Exam: Tachycardia, REGULAR RHYTHM, +S1, +S2 - GI/Abdominal Exam GI & Abdominal Exam: Soft, Normal Bowel Sounds - Extremities Exam Extremities Exam: Full ROM. absent: Pedal Edema - Neurological Exam Neurological Exam: Alert, Awake, Normal Gait, Oriented x3 Neuro motor strength exam: Left Upper Extremity: 5, Right Upper Extremity: 5, Left Lower Extremity: 5, Right Lower Extremity: 5 - Psychiatric Exam Psychiatric exam: Normal Affect, Normal Mood. absent: Agitated, Anxious - Skin Skin Exam: Dry, Warm Assessment and Plan - Assessment and Plan (Free Text) Assessment: 48 yo female with past medical history of heroin abuse, anxiety, DM2 on insulin , hepatitis C presented severe lower abdominal pain secondary to possible uterine fibroids, rule out PID. Plan: - Discontinue pain medications - Continue to restrict all visitors including friends and family - Urine drug screen - Continue to monitor
--- NOTE | 2018-04-13 14:59 | CP.PCM.PN ---
Subjective - Date & Time of Evaluation Date of Evaluation: 04/13/18 Time of Evaluation: 08:00 - Subjective Subjective: Patient seen and examined at bedside in no acute distress. Patient states she is feeling much better, with improvement in pain. Denies nausea, vomiting, diarrhea, cough, headache, fevers, chills, shortness of breath. Objective - Vital Signs/Intake and Output Vital Signs (last 24 hours): Temp Pulse Resp BP Pulse Ox 98.1 F 86 20 152/88 H 100 04/13/18 08:48 04/13/18 08:48 04/13/18 08:48 04/13/18 08:48 04/13/18 08:48 Intake and Output: 04/13/18 04/13/18 06:59 18:59 Intake Total 720 Balance 720 - Medications Medications: Current Medications Clonidine HCl (Catapres) 0.1 mg PO Q8H PRN PRN Reason: Systolic Blood Pressure Last Admin: 04/12/18 12:24 Dose: 0.1 mg Doxycycline Hyclate (Doryx) 100 mg PO Q12 [facility] PRN Reason: Protocol Last Admin: 04/13/18 09:39 Dose: 100 mg Heparin Sodium (Porcine) (Heparin) 5,000 units SC Q12 [facility] PRN Reason: Protocol Last Admin: 04/13/18 09:40 Dose: 5,000 units Piperacillin Sod/Tazobactam Sod (Zosyn 3.375 In Ns 100ml) 100 mls @ 200 mls/hr IVPB Q6 [facility] PRN Reason: Protocol Stop: 04/18/18 06:01 Last Admin: 04/13/18 12:03 Dose: 200 mls/hr Insulin Human Regular (Humulin R Low) 0 units SC ACHS [facility] PRN Reason: Protocol Last Admin: 04/13/18 12:01 Dose: 2 u Ondansetron HCl (Zofran Tab) 4 mg PO Q8H PRN PRN Reason: Nausea/Vomiting Pantoprazole Sodium (Protonix Ec Tab) 40 mg PO 0600 [facility] Last Admin: 04/13/18 06:36 Dose: 40 mg Potassium Phos/Sodium Phos (Neutra-Phos) 1 pkt PO BID [facility] Last Admin: 04/13/18 09:40 Dose: 1 pkt - Labs Labs: 04/13/18 05:30 04/13/18 05:30 PT 11.8 SECONDS (9.4-12.5) 04/11/18 07:30 INR 1.03 04/11/18 07:30 APTT 28.4 Seconds (25.1-36.5) 04/11/18 07:30 - Constitutional Appears: No Acute Distress - Head Exam Head Exam: ATRAUMATIC, NORMAL INSPECTION, NORMOCEPHALIC - Eye Exam Eye Exam: EOMI, Normal appearance. absent: Scleral icterus - ENT Exam ENT Exam: Mucous Membranes Moist, Normal Exam - Neck Exam Neck Exam: Normal Inspection - Respiratory Exam Respiratory Exam: Clear to Ausculation Bilateral, NORMAL BREATHING PATTERN - Cardiovascular Exam Cardiovascular Exam: REGULAR RHYTHM, +S1, +S2 - GI/Abdominal Exam GI & Abdominal Exam: Soft, Normal Bowel Sounds - Extremities Exam Extremities Exam: Normal Inspection - Back Exam Back Exam: NORMAL INSPECTION - Neurological Exam Neurological Exam: Alert, Awake, Oriented x3 - Psychiatric Exam Psychiatric exam: Normal Affect, Normal Mood - Skin Skin Exam: Intact, Normal Color, Warm Assessment and Plan - Assessment and Plan (Free Text) Assessment: Patient is a 48 F with a history of hep c (diagnosed a year ago, without treatment) and heroin and cocaine abuse who presents with complaints of suprapubic pain which began about a year ago. Plan: Lower abdominal pain with leukocytosis secondary to UTI vs. POLITICAL SCIENCE CHAIR etiology (PID) -UA reveals no signs of UTI. Urine C&S reveals no growth -Blood culture neg after 48 hours -C. diff stool culture collected; results pending -C/W POLITICAL SCIENCE CHAIR recs -Continue with treatment as per primary team Elevated Alkaline phosphatase -Elevation started after doxycycline administration which can induce hepatic cholestatic injury; continue to monitor level -Alkaline phophatase downtrending; normalized Diarrhea -C. Diff with recent history of abx for past POLITICAL SCIENCE CHAIR infection has been collected; results pending Pancreatic duct dilation -consider MRCP abdomen with and without contrast if enzyme elevation persists Hx of Hepatitis C -Not treated
[2018-04-14 04:30] LABS: BARBITURATES, UR NEGATIVE (NEGATIVE); BENZODIAZEPINES, UR NEGATIVE (NEGATIVE); OPIATES, UR POSITIVE (NEGATIVE); PHENCYCLIDINE, UR NEGATIVE (NEGATIVE)
[2018-04-14] MEDS: Pantoprazole 40 mg EC Tab PO SCH (05:48)
[2018-04-14] MEDS: Piperacillin/Tazobact 3.375 gm 100 ML IVPB SCH (05:48)
[2018-04-14 07:17] LABS: BASO # 0.11 K/mm3 (0.0-2.0); BASO % 0.6 % (0.0-3.0); EOS # 0.2 (0.0-0.7); GRAN # 13.15 (1.4-6.5); GRAN % 74.9 % (50.0-68.0); LYMPH # 2.9 (1.2-3.4); LYMPH % 16.3 % (22.0-35.0); MEAN CELL VOLUME 84.8 fl (80.0-105.0); MEAN CORPUSCULAR HEMOGLOBIN 29.4 pg (25.0-35.0); MEAN CORPUSCULAR HGB CONC 34.7 g/dl (31.0-37.0); MEAN PLATELET VOLUME 9.5 fl (7.0-11.0); MONO # 1.3 (0.1-0.6); MONO % 7.2 % (1.0-6.0); RBC 4.08 10^6/uL (3.5-6.1); RED CELL DISTRIBUTION WIDTH 13.6 % (11.5-14.5); WHITE BLOOD COUNT 17.6 10^3/ul (4.5-11.0)
[2018-04-14 07:47] LABS: ALB/GLOB RATIO 0.9 (1.1-1.8); ALBUMIN 3.6 g/dL (3.0-4.8); ALT/SGPT 25 U/L (7-56); AST/SGOT 38 U/L (14-36); BLOOD UREA NITROGEN 9 mg/dL (7-21); CALCIUM 8.6 mg/dL (8.4-10.5); GFR AFRICAN-AMERICAN > 60; GFR NON-AFRICAN AMERICAN > 60
[2018-04-14 08:13] VITALS: BP 144/82
[2018-04-14 08:15] VITALS: PULSE 90; TEMP 97.2; O2SAT 100
[2018-04-14] MEDS: Potassium & Sodium Phosphate PO SCH (09:34)
[2018-04-14] MEDS: Insulin Reg-LOW-Coverage SC SCH ×2 (09:34→13:11)
[2018-04-14] MEDS ORDERED: Potassium Chloride 20 mEq ER Tab PO STA (09:45)
--- NOTE | 2018-04-14 13:55 | CP.PCM.DIS ---
<Yo Talley - Last Filed: 04/14/18 14:40> Provider - Provider Date of Admission: 04/11/18 02:06 Attending physician: Dipak Connelly MD Primary care physician: EUGENIE FAMILY PROVIDER Consults: Infectious Disease: Dr. Lane, DEPOSITION OPERATOR: Dr. Hill Gastroenterology: Dr. Hargrove Time Spent in preparation of Discharge (in minutes): 100 Diagnosis - Discharge Diagnosis (1) Drug abuse Status: Acute (2) Pelvic inflammatory disease Status: Acute Hospital Course - Lab Results Lab Results: Micro Results 04/11/18 23:08 Urine Urine Culture - Final No Growth (<1,000 CFU/ML) Most Recent Lab Values WBC 17.6 10^3/ul (4.5-11.0) H 04/14/18 06:30 RBC 4.08 10^6/uL (3.5-6.1) 04/14/18 06:30 Hgb 12.0 g/dL (12.0-16.0) 04/14/18 06:30 Hct 34.6 % (36.0-48.0) L 04/14/18 06:30 MCV 84.8 fl (80.0-105.0) 04/14/18 06:30 MCH 29.4 pg (25.0-35.0) 04/14/18 06:30 MCHC 34.7 g/dl (31.0-37.0) 04/14/18 06:30 RDW 13.6 % (11.5-14.5) 04/14/18 06:30 Plt Count 442 10^3/uL (120.0-450.0) 04/14/18 06:30 MPV 9.5 fl (7.0-11.0) 04/14/18 06:30 Gran % 74.9 % (50.0-68.0) H 04/14/18 06:30 Lymph % (Auto) 16.3 % (22.0-35.0) L 04/14/18 06:30 [place] % (Auto) 7.2 % (1.0-6.0) H 04/14/18 06:30 Eos % (Auto) 1.0 % (1.5-5.0) L 04/14/18 06:30 Baso % (Auto) 0.6 % (0.0-3.0) 04/14/18 06:30 Gran # 13.15 (1.4-6.5) H 04/14/18 06:30 Lymph # (Auto) 2.9 (1.2-3.4) 04/14/18 06:30 [place] # (Auto) 1.3 (0.1-0.6) H 04/14/18 06:30 Eos # (Auto) 0.2 (0.0-0.7) 04/14/18 06:30 Baso # (Auto) 0.11 K/mm3 (0.0-2.0) 04/14/18 06:30 Neutrophils % (Manual) 80 % (50.0-70.0) H 04/10/18 23:06 Band Neutrophils % 6 % (0-2) H 04/10/18 23:06 Lymphocytes % (Manual) 4 % (22.0-35.0) L 04/10/18 23:06 Monocytes % (Manual) 9 % (1.0-6.0) H 04/10/18 23:06 Metamyelocytes % 1 % 04/10/18 23:06 Platelet Evaluation Normal (NORMAL) 04/10/18 23:06 PT 11.8 SECONDS (9.4-12.5) 04/11/18 07:30 INR 1.03 04/11/18 07:30 APTT 28.4 Seconds (25.1-36.5) 04/11/18 07:30 pO2 134 mm/Hg (30-55) H 04/11/18 04:50 VBG pH 7.46 (7.32-7.43) H 04/11/18 04:50 VBG pCO2 44.0 (40-60) 04/11/18 04:50 VBG HCO3 31.3 mmol/l (21-28) H 04/11/18 04:50 VBG Total CO2 32.7 mmol.L (22-28) H 04/11/18 04:50 VBG O2 Sat (Calc) 99.6 % (40-65) H 04/11/18 04:50 VBG Base Excess 6.6 mmol/L (0.0-2.0) H 04/11/18 04:50 VBG Potassium 3.3 mmol/L (3.6-5.2) L 04/11/18 04:50 Sodium 137.0 mmol/L (132-148) 04/11/18 04:50 Chloride 103.0 mmol/L (98-107) 04/11/18 04:50 Glucose 134 mg/dl (65-105) H 04/11/18 04:50 Lactate 1.0 mmol/L (0.7-2.1) 04/11/18 04:50 FiO2 21.0 % 04/11/18 04:50 Sodium 137 mmol/L (132-148) 04/14/18 06:30 Potassium 3.2 mmol/L (3.6-5.0) L 04/14/18 06:30 Chloride 97 mmol/L (98-107) L 04/14/18 06:30 Carbon Dioxide 24 mmol/L (21-33) 04/14/18 06:30 Anion Gap 18 (10-20) 04/14/18 06:30 BUN 9 mg/dL (7-21) 04/14/18 06:30 Creatinine 0.6 mg/dl (0.7-1.2) L 04/14/18 06:30 Est GFR ( Amer) > 60 04/14/18 06:30 Est GFR (Non-Af Amer) > 60 04/14/18 06:30 POC Glucose (mg/dL) 236 mg/dL (65-110) H 04/13/18 11:31 Random Glucose 235 mg/dL (70-110) H 04/14/18 06:30 Hemoglobin A1c 11.9 % (4.2-6.5) H D 04/11/18 04:50 Calcium 8.6 mg/dL (8.4-10.5) 04/14/18 06:30 Phosphorus 2.5 mg/dL (2.5-4.5) 04/14/18 06:30 Magnesium 1.6 mg/dL (1.7-2.2) L 04/14/18 06:30 Total Bilirubin 0.5 mg/dL (0.2-1.3) 04/14/18 06:30 AST 38 U/L (14-36) H D 04/14/18 06:30 ALT 25 U/L (7-56) 04/14/18 06:30 Alkaline Phosphatase 94 U/L (38-126) 04/14/18 06:30 Total Protein 7.8 g/dL (5.8-8.3) 04/14/18 06:30 Albumin 3.6 g/dL (3.0-4.8) 04/14/18 06:30 Globulin 4.1 gm/dL 04/14/18 06:30 Albumin/Globulin Ratio 0.9 (1.1-1.8) L 04/14/18 06:30 Triglycerides 155 mg/dL (35-160) 04/12/18 05:20 Cholesterol 144 mg/dL (130-200) 04/12/18 05:20 LDL Cholesterol Direct 90 mg/dL (0-129) 04/12/18 05:20 HDL Cholesterol 23 mg/dL (29-60) L 04/12/18 05:20 Lipase 19 U/L (23-300) L 04/10/18 23:45 Procalcitonin 1.75 NG/ML (0.19-0.49) H 04/11/18 07:30 TSH 3rd Generation 1.42 mIU/mL (0.46-4.68) 04/11/18 07:30 Venous Blood Potassium 3.3 mmol/L (3.6-5.2) L 04/11/18 04:50 Urine Color Yellow (YELLOW) 04/11/18 14:00 Urine Appearance Clear (CLEAR) 04/11/18 14:00 Urine pH 7.5 (4.7-8.0) 04/11/18 14:00 Ur Specific Vance 1.020 (1.005-1.035) 04/11/18 14:00 Urine Protein 100 mg/dL (<30 mg/dL) H 04/11/18 14:00 Urine Glucose (UA) 500 mg/dL (NEGATIVE) H 04/11/18 14:00 Urine Ketones 40 mg/dL (NEGATIVE) H 04/11/18 14:00 Urine Blood Large (NEGATIVE) H 04/11/18 14:00 Urine Nitrate Negative (NEGATIVE) 04/11/18 14:00 Urine Bilirubin Negative (NEGATIVE) 04/11/18 14:00 Urine Urobilinogen 1.0 E.U./dL (<1 E.U./dL) H 04/11/18 14:00 Ur Leukocyte Esterase Negative Nanette/uL (NEGATIVE) 04/11/18 14:00 Urine RBC 20 - 25 /hpf (0-2) 04/11/18 14:00 Urine WBC 1 - 3 /hpf (0-6) 04/11/18 14:00 Ur Epithelial Cells 4 - 5 /hpf (0-5) 04/11/18 14:00 Urine Bacteria Mod (NEG) 04/11/18 14:00 Urine HCG, Qual Negative (NEGATIVE) 04/11/18 14:00 Stool Occult Blood Negative (NEGATIVE) 04/13/18 12:30 Stool Leukocytes, Qual Negative (NEGATIVE) 04/13/18 12:30 Urine Opiates Screen Positive (NEGATIVE) H 04/14/18 03:30 Urine Methadone Screen Negative (NEGATIVE) 04/14/18 03:30 Ur Barbiturates Screen Negative (NEGATIVE) 04/14/18 03:30 Ur Phencyclidine Scrn Negative (NEGATIVE) 04/14/18 03:30 Ur Amphetamines Screen Negative (NEGATIVE) 04/14/18 03:30 U Benzodiazepines Scrn Negative (NEGATIVE) 04/14/18 03:30 U Oth Cocaine Metabols Negative (NEGATIVE) 04/14/18 03:30 U Cannabinoids Screen Negative (NEGATIVE) 04/14/18 03:30 Alcohol, Quantitative < 10 mg/dL (0-10) 04/10/18 23:45 C.trachomatis RNA (TMA) Not detected (Not Detected) 04/11/18 14:00 HIV 1&2 Ag/Ab, 4th Gen Nonreactive (Nonreactive) 04/11/18 07:30 N.gonorrhoeae RNA (TMA) Not detected (Not Detected) 04/11/18 14:00 - Hospital Course Hospital Course: Yo Talley, PGY-1, Internal Medicine Discharge Summary for Dr. Connelly 48 year old female with past medical history of heroin abuse, cocaine abuse, history of STDs, anxiety, DM2 on insulin, hepatitis C presented to ED with complaints of severe lower abdominal pain on 04/11. Pt reported that she has had severe pain in her lower abdomen for the past month. She stated the pain is "in the uterus" that is 10/10 severity and has been ongoing for the past month. She reported not completing antibiotic treatment for PID one month ago. Pt denied fevers, chills, chest pain, shortness of breath, numbness, tingling, hematuria. In the ED, she had a WBC of 34.4 and received IV zosyn, doxycycline, and vancomycin. She was admitted for sepsis. Upon admission, patient continued to complain of abdominal pain and vomiting. She was NPO. She was monitored for signs of withdrawal. Abdominal CT on 04/11 showed enlarged anteverted uterus with multiple masses consistent with fibroids at least 1 of which contained dense calcifications. TVUS on 04/11 showed multiple fibroids. Pelvic ultrasound on 04/11 showed multiple uterine fibroids one of which is calcified. Small right ovarian cyst seen. Abdominal ultrasound 04/12 shows 1.2 cm round lesion in the posterior right hepatic lobe most compatible with a hemangioma according to report. ID was consulted and recommended giving 1 dose of rocephin, and starting with doxycycline and zosyn. Patient was day 3 of doxycycline and zosyn yesterday. Patient was GI was consulted and recommended continuation of antibiotics and to order stool studies. OB was consulted and recommended patient to follow up outpatient for removal of fibroids. Patient was advanced to full diet as tolerated. Her WBC decreased to 17.6. Patient was found to have HgbA1c of 11.9 and will have to follow up PCP regarding uncontrolled diabetes. Today, zosyn was discontinued and patient will be discharged with doxycycline and flagyl for 10 days. UDS was positive for cocaine and opiods. Patient was given methadone 10 mg and ativan 1 mg PRN to prevent withdrawal symptoms. Patient's methadone was discontinued on the 04/13. Clonidine 0.1 mg Q8 was started on 04/12. Patient was found to receive some unknown medication from boyfriend or which made her sleepy, so pain medications were discontinued. There were multiple issues with visitors for this patient, so visitation was restricted for this patient. Patient was discharged with instructions for newly prescribed medications and follow up appointments with PCP regarding uncontrolled diabetes and [employer] and fibroids. Patient was told to return to the emergency department for recurrent or worsening symptoms. This is a brief summary of the events that transpired at the hospital. For more information, please refer to medical records. - Date & Time of H&P Date of H&P: 04/11/18 Time of H&P: 02:54 Discharge Exam - Head Exam Head Exam: ATRAUMATIC, NORMAL INSPECTION, NORMOCEPHALIC - Eye Exam Eye Exam: EOMI, PERRL - Respiratory Exam Respiratory Exam: Clear to PA & Lateral, UNREMARKABLE - Cardiovascular Exam Cardiovascular Exam: REGULAR RHYTHM, RRR - GI/Abdominal Exam GI & Abdominal Exam: Normal Bowel Sounds, Soft, Tenderness - Extremities Exam Extremities exam: full ROM - Neurological Exam Neurological exam: Alert, CN II-XII Intact, Oriented x3 - Psychiatric Exam Psychiatric exam: Normal Affect, Normal Mood - Skin Skin Exam: Dry, Intact, Normal Color Discharge Plan - Discharge Medications Prescriptions: Doxycycline Hyclate 100 mg PO BID 10 Days #20 capsule GlipiZIDE [Glucotrol] 5 mg PO DAILY 14 Days #14 tab Metronidazole [Flagyl] 500 mg PO Q8H #30 tablet - Follow Up Plan Condition: STABLE Disposition: HOME/ ROUTINE Instructions: Pelvic Inflammatory Disease Additional Instructions: 1.Please follow up with your PCP regarding HgA1C of 11.9. You will be started on a new medication glipizide which you will need to take in addition to your other medications. 2.Please follow up with your OBGYN regarding your PID; and take all antibiotics to completion as prescribed as we discussed. Do not stop antibiotics on your own until they are finished. 3.Please refrain from drug abuse as it is detrimental to your health. 4.Go to your nearest emergency department in case of worsening of symptoms. 5.Please follow up with [facility] clinic on April 23 at 4 p.m. Referrals: [employer] [facility] [Outside] FAMILY PROVIDER,NO [Primary Care Provider] - <Dipak Connelly - Last Filed: 04/15/18 12:12> Provider - Provider Date of Admission: 04/11/18 02:06 Attending physician: Dipak Connelly MD Primary care physician: NO FAMILY PROVIDER Hospital Course - Lab Results Lab Results: Micro Results 04/13/18 12:30 Stool C. difficile Antigen & Toxin A,B (M - Final 04/11/18 23:08 Urine Urine Culture - Final No Growth (<1,000 CFU/ML) Most Recent Lab Values WBC 17.6 10^3/ul (4.5-11.0) H 04/14/18 06:30 RBC 4.08 10^6/uL (3.5-6.1) 04/14/18 06:30 Hgb 12.0 g/dL (12.0-16.0) 04/14/18 06:30 Hct 34.6 % (36.0-48.0) L 04/14/18 06:30 MCV 84.8 fl (80.0-105.0) 04/14/18 06:30 MCH 29.4 pg (25.0-35.0) 04/14/18 06:30 MCHC 34.7 g/dl (31.0-37.0) 04/14/18 06:30 RDW 13.6 % (11.5-14.5) 04/14/18 06:30 Plt Count 442 10^3/uL (120.0-450.0) 04/14/18 06:30 MPV 9.5 fl (7.0-11.0) 04/14/18 06:30 Gran % 74.9 % (50.0-68.0) H 04/14/18 06:30 Lymph % (Auto) 16.3 % (22.0-35.0) L 04/14/18 06:30 [place] % (Auto) 7.2 % (1.0-6.0) H 04/14/18 06:30 Eos % (Auto) 1.0 % (1.5-5.0) L 04/14/18 06:30 Baso % (Auto) 0.6 % (0.0-3.0) 04/14/18 06:30 Gran # 13.15 (1.4-6.5) H 04/14/18 06:30 Lymph # (Auto) 2.9 (1.2-3.4) 04/14/18 06:30 [place] # (Auto) 1.3 (0.1-0.6) H 04/14/18 06:30 Eos # (Auto) 0.2 (0.0-0.7) 04/14/18 06:30 Baso # (Auto) 0.11 K/mm3 (0.0-2.0) 04/14/18 06:30 Neutrophils % (Manual) 80 % (50.0-70.0) H 04/10/18 23:06 Band Neutrophils % 6 % (0-2) H 04/10/18 23:06 Lymphocytes % (Manual) 4 % (22.0-35.0) L 04/10/18 23:06 Monocytes % (Manual) 9 % (1.0-6.0) H 04/10/18 23:06 Metamyelocytes % 1 % 04/10/18 23:06 Platelet Evaluation Normal (NORMAL) 04/10/18 23:06 PT 11.8 SECONDS (9.4-12.5) 04/11/18 07:30 INR 1.03 04/11/18 07:30 APTT 28.4 Seconds (25.1-36.5) 04/11/18 07:30 pO2 134 mm/Hg (30-55) H 04/11/18 04:50 VBG pH 7.46 (7.32-7.43) H 04/11/18 04:50 VBG pCO2 44.0 (40-60) 04/11/18 04:50 VBG HCO3 31.3 mmol/l (21-28) H 04/11/18 04:50 VBG Total CO2 32.7 mmol.L (22-28) H 04/11/18 04:50 VBG O2 Sat (Calc) 99.6 % (40-65) H 04/11/18 04:50 VBG Base Excess 6.6 mmol/L (0.0-2.0) H 04/11/18 04:50 VBG Potassium 3.3 mmol/L (3.6-5.2) L 04/11/18 04:50 Sodium 137.0 mmol/L (132-148) 04/11/18 04:50 Chloride 103.0 mmol/L (98-107) 04/11/18 04:50 Glucose 134 mg/dl (65-105) H 04/11/18 04:50 Lactate 1.0 mmol/L (0.7-2.1) 04/11/18 04:50 FiO2 21.0 % 04/11/18 04:50 Sodium 137 mmol/L (132-148) 04/14/18 06:30 Potassium 3.2 mmol/L (3.6-5.0) L 04/14/18 06:30 Chloride 97 mmol/L (98-107) L 04/14/18 06:30 Carbon Dioxide 24 mmol/L (21-33) 04/14/18 06:30 Anion Gap 18 (10-20) 04/14/18 06:30 BUN 9 mg/dL (7-21) 04/14/18 06:30 Creatinine 0.6 mg/dl (0.7-1.2) L 04/14/18 06:30 Est GFR ( Amer) > 60 04/14/18 06:30 Est GFR (Non-Af Amer) > 60 04/14/18 06:30 POC Glucose (mg/dL) 236 mg/dL (65-110) H 04/13/18 11:31 Random Glucose 235 mg/dL (70-110) H 04/14/18 06:30 Hemoglobin A1c 11.9 % (4.2-6.5) H D 04/11/18 04:50 Calcium 8.6 mg/dL (8.4-10.5) 04/14/18 06:30 Phosphorus 2.5 mg/dL (2.5-4.5) 04/14/18 06:30 Magnesium 1.6 mg/dL (1.7-2.2) L 04/14/18 06:30 Total Bilirubin 0.5 mg/dL (0.2-1.3) 04/14/18 06:30 AST 38 U/L (14-36) H D 04/14/18 06:30 ALT 25 U/L (7-56) 04/14/18 06:30 Alkaline Phosphatase 94 U/L (38-126) 04/14/18 06:30 Total Protein 7.8 g/dL (5.8-8.3) 04/14/18 06:30 Albumin 3.6 g/dL (3.0-4.8) 04/14/18 06:30 Globulin 4.1 gm/dL 04/14/18 06:30 Albumin/Globulin Ratio 0.9 (1.1-1.8) L 04/14/18 06:30 Triglycerides 155 mg/dL (35-160) 04/12/18 05:20 Cholesterol 144 mg/dL (130-200) 04/12/18 05:20 LDL Cholesterol Direct 90 mg/dL (0-129) 04/12/18 05:20 HDL Cholesterol 23 mg/dL (29-60) L 04/12/18 05:20 Lipase 19 U/L (23-300) L 04/10/18 23:45 Procalcitonin 1.75 NG/ML (0.19-0.49) H 04/11/18 07:30 TSH 3rd Generation 1.42 mIU/mL (0.46-4.68) 04/11/18 07:30 Venous Blood Potassium 3.3 mmol/L (3.6-5.2) L 04/11/18 04:50 Urine Color Yellow (YELLOW) 04/11/18 14:00 Urine Appearance Clear (CLEAR) 04/11/18 14:00 Urine pH 7.5 (4.7-8.0) 04/11/18 14:00 Ur Specific Vance 1.020 (1.005-1.035) 04/11/18 14:00 Urine Protein 100 mg/dL (<30 mg/dL) H 04/11/18 14:00 Urine Glucose (UA) 500 mg/dL (NEGATIVE) H 04/11/18 14:00 Urine Ketones 40 mg/dL (NEGATIVE) H 04/11/18 14:00 Urine Blood Large (NEGATIVE) H 04/11/18 14:00 Urine Nitrate Negative (NEGATIVE) 04/11/18 14:00 Urine Bilirubin Negative (NEGATIVE) 04/11/18 14:00 Urine Urobilinogen 1.0 E.U./dL (<1 E.U./dL) H 04/11/18 14:00 Ur Leukocyte Esterase Negative Nanette/uL (NEGATIVE) 04/11/18 14:00 Urine RBC 20 - 25 /hpf (0-2) 04/11/18 14:00 Urine WBC 1 - 3 /hpf (0-6) 04/11/18 14:00 Ur Epithelial Cells 4 - 5 /hpf (0-5) 04/11/18 14:00 Urine Bacteria Mod (NEG) 04/11/18 14:00 Urine HCG, Qual Negative (NEGATIVE) 04/11/18 14:00 Stool Occult Blood Negative (NEGATIVE) 04/13/18 12:30 Stool Leukocytes, Qual Negative (NEGATIVE) 04/13/18 12:30 Stool H. pylori Ag Not detected (Not Detected) 04/13/18 12:30 Urine Opiates Screen Positive (NEGATIVE) H 04/14/18 03:30 Urine Methadone Screen Negative (NEGATIVE) 04/14/18 03:30 Ur Barbiturates Screen Negative (NEGATIVE) 04/14/18 03:30 Ur Phencyclidine Scrn Negative (NEGATIVE) 04/14/18 03:30 Ur Amphetamines Screen Negative (NEGATIVE) 04/14/18 03:30 U Benzodiazepines Scrn Negative (NEGATIVE) 04/14/18 03:30 U Oth Cocaine Metabols Negative (NEGATIVE) 04/14/18 03:30 U Cannabinoids Screen Negative (NEGATIVE) 04/14/18 03:30 Alcohol, Quantitative < 10 mg/dL (0-10) 04/10/18 23:45 C.trachomatis RNA (TMA) Not detected (Not Detected) 04/11/18 14:00 H. pylori Source Stool 04/13/18 12:30 HIV 1&2 Ag/Ab, 4th Gen Nonreactive (Nonreactive) 04/11/18 07:30 N.gonorrhoeae RNA (TMA) Not detected (Not Detected) 04/11/18 14:00 Attending/Attestation - Attestation I have personally seen and examined this patient.: Yes I have fully participated in the care of the patient.: Yes I have reviewed all pertinent clinical information, including history, physical exam and plan: Yes Notes (Text): 04/15/18 12:10 Attending note; Patient seen and examined with resident. Patient is a 48-year-old female with the past medical history of heroin abuse, cocaine abuse ,anxiety, DM2 on insulin, hepatitis C , history of STDs is presented to ED with severe lower abdominal pain and admitted for sepsis. According to the patient she was recently treated with po antibiotics by PHOTONICS TECHNICIAN for pelvic inflammatory disease. Patient is currently with elevated white count. Patient is afebrile and nontoxic. treated with IV Zosyn and doxycycline. Blood culture is negative. Urine culture is negative. PHOTONICS TECHNICIAN evaluation appreciated . Patient with a history of fibroids; needs outpatient follow-up. ID evaluation appreciated. Continue to monitor white count. Chronic opiate seeking behavior. Monitor closely. History of cocaine abuse and heroin abuse. Denies any IV drug abuse recently. History of hep C; not treated. Patient used drugs in the hospital. Monitor closely. Currently patient is alert and awake. Ambulating fine. Tolerating diet well. Chronic abdominal pain/pain seeking behavior. Complete drug abuse cessation is strongly advised. Discharge home today. Upon discharge patient will be referred to [facility] clinic. 04/15/18 12:12
--- NOTE | 2018-04-14 14:27 | CP.PCM.PN ---
Subjective - Date & Time of Evaluation Date of Evaluation: 04/14/18 Time of Evaluation: 09:10 - Subjective Subjective: PGY5 GI Follow-up Note pt seen and examined bedside still has some abd pain, in lower quadrants B/L tolerating diet denies N/V/ notes continued diarrhea ROS: 12 point ROS conducted, neg other than above Objective - Vital Signs/Intake and Output Vital Signs (last 24 hours): Temp Pulse Resp BP Pulse Ox 97.2 F L 90 20 144/82 100 04/14/18 08:14 04/14/18 08:14 04/14/18 08:14 04/14/18 08:13 04/14/18 08:14 Intake and Output: 04/14/18 04/14/18 06:59 18:59 Intake Total 760 Output Total 1300 Balance -540 - Medications Medications: Current Medications Clonidine HCl (Catapres) 0.1 mg PO Q8H PRN PRN Reason: Systolic Blood Pressure Last Admin: 04/12/18 12:24 Dose: 0.1 mg Doxycycline Hyclate (Doryx) 100 mg PO Q12 [facility] PRN Reason: Protocol Last Admin: 04/14/18 09:34 Dose: 100 mg Glipizide (Glucotrol) 5 mg PO DAILY [facility] Last Admin: 04/14/18 13:12 Dose: 5 mg Heparin Sodium (Porcine) (Heparin) 5,000 units SC Q12 [facility] PRN Reason: Protocol Last Admin: 04/14/18 09:34 Dose: 5,000 units Ibuprofen (Motrin Tab) 400 mg PO Q6H PRN PRN Reason: Pain, moderate (4-7) Last Admin: 04/14/18 10:49 Dose: 400 mg Insulin Human Regular (Humulin R Low) 0 units SC ACHS [facility] PRN Reason: Protocol Last Admin: 04/14/18 13:11 Dose: 2 unit Metronidazole (Flagyl) 500 mg PO Q8 [facility] PRN Reason: Protocol Last Admin: 04/14/18 10:49 Dose: 500 mg Ondansetron HCl (Zofran Tab) 4 mg PO Q8H PRN PRN Reason: Nausea/Vomiting Ondansetron HCl (Zofran Inj) 4 mg IVP Q6H PRN PRN Reason: Nausea/Vomiting Pantoprazole Sodium (Protonix Ec Tab) 40 mg PO 0600 [facility] Last Admin: 04/14/18 05:48 Dose: 40 mg Potassium Phos/Sodium Phos (Neutra-Phos) 1 pkt PO BID [facility] Last Admin: 04/14/18 09:34 Dose: 1 pkt - Labs Labs: 04/14/18 06:30 04/14/18 06:30 PT 11.8 SECONDS (9.4-12.5) 04/11/18 07:30 INR 1.03 04/11/18 07:30 APTT 28.4 Seconds (25.1-36.5) 04/11/18 07:30 - Constitutional Appears: Well, No Acute Distress - Head Exam Head Exam: ATRAUMATIC, NORMOCEPHALIC - Eye Exam Eye Exam: Normal appearance - ENT Exam ENT Exam: Mucous Membranes Moist, Normal Exam - Neck Exam Neck Exam: Normal Inspection - Respiratory Exam Respiratory Exam: Clear to Ausculation Bilateral, NORMAL BREATHING PATTERN. absent: Rales, Rhonchi, Wheezes, Respiratory Distress - Cardiovascular Exam Cardiovascular Exam: REGULAR RHYTHM, +S1, +S2 - GI/Abdominal Exam GI & Abdominal Exam: Soft, Normal Bowel Sounds. absent: Guarding, Rigid, Tenderness, Organomegaly - Extremities Exam Extremities Exam: absent: Joint Swelling, Pedal Edema - Neurological Exam Neurological Exam: Alert, Awake, Oriented x3 - Psychiatric Exam Psychiatric exam: Normal Affect, Normal Mood - Skin Skin Exam: Dry, Intact, Normal Color, Warm Assessment and Plan - Assessment and Plan (Free Text) Assessment: Patient is a 48 F with a history of hep c (diagnosed a year ago, without treatment) and heroin and cocaine abuse who presents with complaints of suprapubic pain which began about a year ago. Diarrhea, etiology unknown, r/o infectous etiology. DDx: withdrawl from heroine and cocaine, overflow diarrhea? polysubstance abuse hx of chronic constipation Possible hepatic hemangioma on U/S Plan: -r/o infectous etiology, stool culture, c.diff -recommended triple CT liver to eval hepatic lesion as an outpt, which is likely a hemangioma -consulted on stopping drug use -if the above etiology neg, can consider withdrawl as an etiology of diarrhea -pt denies nay rectal bleeding -recommend colonoscopy as an oupt will D/W Dr. Hargrove
--- NOTE | 2018-04-14 16:10 | CP.PCM.PN ---
Subjective - Date & Time of Evaluation Date of Evaluation: 04/14/18 Time of Evaluation: 11:15 - Subjective Subjective: Less abdominal pain, no fevers, not in distress. Objective - Vital Signs/Intake and Output Vital Signs (last 24 hours): Temp Pulse Resp BP Pulse Ox 98.2 F 82 20 174/104 H 99 04/14/18 03:08 04/14/18 03:08 04/14/18 03:08 04/14/18 06:31 04/14/18 03:08 Intake and Output: 04/14/18 04/14/18 06:59 18:59 Intake Total 760 Output Total 1300 Balance -540 - Medications Medications: Current Medications Clonidine HCl (Catapres) 0.1 mg PO Q8H PRN PRN Reason: Systolic Blood Pressure Last Admin: 04/12/18 12:24 Dose: 0.1 mg Doxycycline Hyclate (Doryx) 100 mg PO Q12 [facility] PRN Reason: Protocol Last Admin: 04/13/18 21:30 Dose: 100 mg Heparin Sodium (Porcine) (Heparin) 5,000 units SC Q12 [facility] PRN Reason: Protocol Last Admin: 04/13/18 21:30 Dose: 5,000 units Insulin Human Regular (Humulin R Low) 0 units SC ACHS [facility] PRN Reason: Protocol Last Admin: 04/13/18 21:30 Dose: Not Given Ondansetron HCl (Zofran Tab) 4 mg PO Q8H PRN PRN Reason: Nausea/Vomiting Pantoprazole Sodium (Protonix Ec Tab) 40 mg PO 0600 [facility] Last Admin: 04/14/18 05:48 Dose: 40 mg Potassium Phos/Sodium Phos (Neutra-Phos) 1 pkt PO BID [facility] Last Admin: 04/13/18 17:28 Dose: 1 pkt - Labs Labs: 04/14/18 06:30 04/14/18 06:30 PT 11.8 SECONDS (9.4-12.5) 04/11/18 07:30 INR 1.03 04/11/18 07:30 APTT 28.4 Seconds (25.1-36.5) 04/11/18 07:30 - Constitutional Appears: Chronically Ill - Head Exam Head Exam: NORMAL INSPECTION - Respiratory Exam Respiratory Exam: Decreased Breath Sounds - Cardiovascular Exam Cardiovascular Exam: +S1, +S2 - GI/Abdominal Exam GI & Abdominal Exam: Soft. absent: Tenderness Assessment and Plan - Assessment and Plan (Free Text) Plan: Assessment SIRS R/O sepsis R/O PID DM hepatitis C heroin and cocaine use anxiety disorder uterine fibroids Plan continue Zosyn and Doxycycline; patient has received 1 dose of Ceftriaxone which should cover gonorrhea properly; should get 7-10 days of antibiotics
== END 2018-04-14 15:20 | disposition home or self-care (01) | DRG 572 ==
LOC: ED 22:10 → ERH 04-11 02:06 → 2RNO 04-11 03:06 → 3RSO 04-12 18:39
PROVIDERS: ADMIT Internal Medicine; ATTEND Internal Medicine
DX: N73.9 Female pelvic inflammatory disease, unspecified (principal); R65.10 Systemic inflammatory response syndrome (SIRS) of non-infectious origin without acute organ dysfunction; E11.65 Type 2 diabetes mellitus with hyperglycemia; F11.10 Opioid abuse, uncomplicated; F14.10 Cocaine abuse, uncomplicated; B19.20 Unspecified viral hepatitis C without hepatic coma; E87.6 Hypokalemia; D25.9 Leiomyoma of uterus, unspecified; N83.201 Unspecified ovarian cyst, right side; D18.03 Hemangioma of intra-abdominal structures; N85.4 Malposition of uterus; E83.39 Other disorders of phosphorus metabolism; F41.9 Anxiety disorder, unspecified; K86.89 Other specified diseases of pancreas; F17.210 Nicotine dependence, cigarettes, uncomplicated; R19.7 Diarrhea, unspecified; Z79.84 Long term (current) use of oral hypoglycemic drugs; Z76.5 Malingerer [conscious simulation]; Z91.19 Patient's noncompliance with other medical treatment and regimen